=== PATIENT | male | born 1950 | race African-American/Black ===

== ENCOUNTER 2019-01-12 09:18 | Emergency (ER) | payer MEDICARE, MEDICAID ==
[~2019-01-12] VITALS: Ht 185.4 cm; Wt 102.3 kg
[~2019-01-12 09:18] MED LIST: AMLO10TA4 PO; ASPI-845 PO; ATEN50TA23 PO; DIPH25CA83 PO; GLIM4TAB4 PO; HYDR-4353 PO; LISI40TA4 PO; METF500T PO; MULT1TAB74 PO; OMEP20CA11 PO
--- NOTE | 2019-01-12 09:39 | NUR ---
PT OFF TO CT
[2019-01-12 10:08] LABS: BASOPHILS % (AUTO) 0.8 % (0-1); EOSINOPHILS # (AUTO) 0.1 X10'3 (0-0.9); EOSINOPHILS % (AUTO) 2.3 % (0-6); HEMATOCRIT 32.2 % (42.0-52.0); HEMOGLOBIN 10.9 g/dl (14.0-17.9); LYMPHOCYTES # (AUTO) 1.5 X10'3 (1.1-4.8); LYMPHOCYTES % (AUTO) 29.6 % (21-51); MEAN CORPUSCULAR HEMOGLOBIN 29.1 PG (27.0-31.0); MEAN CORPUSCULAR HGB CONC 33.9 g/dL (33.0-36.5); MEAN CORPUSCULAR VOLUME 85.9 FL (78-98); MEAN PLATELET VOLUME 8.4 FL (7.4-10.4); MONOCYTES # (AUTO) 0.7 X10'3 (0-0.9); MONOCYTES % (AUTO) 12.8 % (2-12); NEUTROPHILS # (AUTO) 2.8 X10'3 (1.8-7.7); NEUTROPHILS % (AUTO) 54.5 % (42-75); PLATELET COUNT 198 X10'3 (140-440); RED BLOOD COUNT 3.74 X10'6 (4.70-6.10); RED CELL DISTRIBUTION WIDTH 17.1 % (11.5-14.5); WHITE BLOOD COUNT 5.2 X10'3 (4.5-11.0)
--- NOTE | 2019-01-12 10:11 | NUR ---
STROKE CHECK LIST DONE EVERY 15 MIN IN VS FLOWSHEET
[2019-01-12 10:23] LABS: PARTIAL THROMBOPLASTIN TIME 25 SECONDS (22-32)
[2019-01-12 10:28] LABS: ALANINE AMINOTRANSFERASE 30 U/L (12-78); ALBUMIN 3.4 G/DL (3.4-5.0); ALBUMIN/GLOBULIN RATIO 0.9 (1.1-1.5); ALKALINE PHOSPHATASE 108 IU/L (46-116); ANION GAP 10 (8-16); ASPARTATE AMINO TRANSFERASE 18 U/L (10-37); BILIRUBIN,TOTAL 0.2 MG/DL (0.1-1.0); BLOOD UREA NITROGEN 14 MG/DL (7-18); CALCIUM 9.1 MG/DL (8.5-10.1); CHLORIDE 107 MMOL/L (99-107); CREATININE 1.08 MG/DL (0.60-1.10); GLUCOSE 140 MG/DL (70-104); POTASSIUM 4.1 MMOL/L (3.5-5.1); SODIUM 142 MMOL/L (135-145); TOTAL CARBON DIOXIDE 25.2 MMOL/L (24-32); TOTAL PROTEIN 7.2 G/DL (6.4-8.2); TROPONIN I < 0.04 NG/ML (0.0-0.05); eGFR 83 ML/MIN
[2019-01-12] MEDS ORDERED: HYDROcodone/acetaminophen 5mg/325mg tablet PO ONE (11:55)
[2019-01-12 12:09] VITALS: BP 163/89
== END 2019-01-12 12:13 | disposition home or self-care (01) ==
LOC: ER 09:20
DX: R51 Headache (principal); R42 Dizziness and giddiness; R41.0 Disorientation, unspecified; E78.00 Pure hypercholesterolemia, unspecified; I10 Essential (primary) hypertension; E11.9 Type 2 diabetes mellitus without complications; G89.29 Other chronic pain; F41.9 Anxiety disorder, unspecified; Z98.890 Other specified postprocedural states; F12.90 Cannabis use, unspecified, uncomplicated; F15.90 Other stimulant use, unspecified, uncomplicated; F10.99 Alcohol use, unspecified with unspecified alcohol-induced disorder; R79.1 Abnormal coagulation profile; Z60.2 Problems related to living alone; Z59.0 Homelessness; Z88.6 Allergy status to analgesic agent; Z88.0 Allergy status to penicillin; Z88.5 Allergy status to narcotic agent; Z88.8 Allergy status to other drugs, medicaments and biological substances; Z91.018 Allergy to other foods; Z79.82 Long term (current) use of aspirin; Z79.84 Long term (current) use of oral hypoglycemic drugs; Z79.899 Other long term (current) drug therapy; Y90.9 Presence of alcohol in blood, level not specified
CPT/HCPCS: 36415; 70450; 71045; 80053; 84484; 85025; 85610; 85651; 85730; 93005; 99284

== ENCOUNTER 2019-02-17 10:16 | Emergency (ER) | payer MEDICARE, MEDICAID ==
[~2019-02-17] VITALS: Ht 185.4 cm; Wt 95.0 kg
[2019-02-17 10:25] VITALS: BP 155/98
[2019-02-17] MEDS ORDERED: ketorolac trometh inj. 60 MG/2 ML VIAL IM ONE (12:40)
[2019-02-17] MEDS ORDERED: CYCL-1 PO (12:43)
== END 2019-02-17 13:06 | disposition home or self-care (01) ==
LOC: ER 10:16
DX: M54.5 Low back pain (principal); E78.00 Pure hypercholesterolemia, unspecified; I10 Essential (primary) hypertension; E11.9 Type 2 diabetes mellitus without complications; G89.29 Other chronic pain; F41.9 Anxiety disorder, unspecified; F12.90 Cannabis use, unspecified, uncomplicated; F15.90 Other stimulant use, unspecified, uncomplicated; Z88.0 Allergy status to penicillin; Z88.6 Allergy status to analgesic agent; Z88.8 Allergy status to other drugs, medicaments and biological substances; Z79.899 Other long term (current) drug therapy; Z79.82 Long term (current) use of aspirin; Z98.890 Other specified postprocedural states; Z60.2 Problems related to living alone; Z59.0 Homelessness; X50.0XXA Overexertion from strenuous movement or load, initial encounter; Y93.89 Activity, other specified; Y92.89 Other specified places as the place of occurrence of the external cause; Y99.8 Other external cause status
CPT/HCPCS: 96372; 99283; J1885

== ENCOUNTER 2019-02-26 00:10 | Emergency (ER) | payer MEDICARE, MEDICAID ==
[~2019-02-26] VITALS: Ht 185.4 cm; Wt 100.0 kg
[~2019-02-26 00:10] MED LIST changes: +CYCL-1 PO
[2019-02-26 00:55] LABS: BASOPHILS % (AUTO) 0.5 % (0-1); EOSINOPHILS # (AUTO) 0.1 X10'3 (0-0.9); HEMATOCRIT 22.2 % (42.0-52.0); HEMOGLOBIN 7.3 g/dl (14.0-17.9); LYMPHOCYTES # (AUTO) 1.6 X10'3 (1.1-4.8); LYMPHOCYTES % (AUTO) 24.4 % (21-51); MEAN CORPUSCULAR HEMOGLOBIN 25.7 PG (27.0-31.0); MEAN CORPUSCULAR HGB CONC 32.7 g/dL (33.0-36.5); MEAN CORPUSCULAR VOLUME 78.5 FL (78-98); MEAN PLATELET VOLUME 7.6 FL (7.4-10.4); MONOCYTES # (AUTO) 0.6 X10'3 (0-0.9); MONOCYTES % (AUTO) 9.3 % (2-12); NEUTROPHILS # (AUTO) 4.1 X10'3 (1.8-7.7); NEUTROPHILS % (AUTO) 63.8 % (42-75); PLATELET COUNT 278 X10'3 (140-440); RED BLOOD COUNT 2.83 X10'6 (4.70-6.10); RED CELL DISTRIBUTION WIDTH 18.6 % (11.5-14.5); WHITE BLOOD COUNT 6.5 X10'3 (4.5-11.0)
[2019-02-26 01:05] LABS: ALANINE AMINOTRANSFERASE 17 U/L (12-78); ALBUMIN 3.1 G/DL (3.4-5.0); ALBUMIN/GLOBULIN RATIO 0.9 (1.1-1.5); ALKALINE PHOSPHATASE 97 IU/L (46-116); ANION GAP 10 (8-16); ASPARTATE AMINO TRANSFERASE 16 U/L (10-37); BILIRUBIN,TOTAL 0.2 MG/DL (0.1-1.0); BLOOD UREA NITROGEN 15 MG/DL (7-18); BUN/CREATININE RATIO 11.9 (5.4-32.0); CALCIUM 8.7 MG/DL (8.5-10.1); CHLORIDE 107 MMOL/L (99-107); CREATININE 1.26 MG/DL (0.60-1.10); GLUCOSE 143 MG/DL (70-104); SODIUM 140 MMOL/L (135-145); TOTAL CARBON DIOXIDE 22.9 MMOL/L (24-32); TOTAL PROTEIN 6.6 G/DL (6.4-8.2); eGFR 69 ML/MIN
[2019-02-26 01:10] LABS: MAGNESIUM 1.6 MG/DL (1.5-2.4)
[2019-02-26 01:21] LABS: ANISOCYTOSIS 2+; HYPOCHROMASIA 1+; MICROCYTOSIS 1+; PLATELET ESTIMATE NORMAL
[2019-02-26] MEDS ORDERED: PIOG15TA8 PO (02:05)
[2019-02-26] MEDS ORDERED: LINA5TAB4 PO (02:05)
[2019-02-26] MEDS ORDERED: METO1TAB25 PO (02:05)
[2019-02-26] MEDS ORDERED: DULO-31 PO (02:05)
[2019-02-26] MEDS ORDERED: CLOP75TA35 PO (02:05)
[2019-02-26] MEDS ORDERED: SIMV10TA2 PO (02:05)
[2019-02-26] MEDS ORDERED: PARO10TA85 PO (02:05)
[2019-02-26 02:10] VITALS: BP 138/75
[2019-02-26 04:13] LABS: OCCULT BLOOD STOOL NEGATIVE (Neg)
== END 2019-02-26 02:13 | disposition home or self-care (01) ==
LOC: ER 00:11
DX: T78.40XA Allergy, unspecified, initial encounter (principal); D64.9 Anemia, unspecified; E78.00 Pure hypercholesterolemia, unspecified; I10 Essential (primary) hypertension; E11.9 Type 2 diabetes mellitus without complications; G89.29 Other chronic pain; F41.9 Anxiety disorder, unspecified; F12.90 Cannabis use, unspecified, uncomplicated; F15.90 Other stimulant use, unspecified, uncomplicated; Z98.890 Other specified postprocedural states; Z60.2 Problems related to living alone; Z59.0 Homelessness; Z87.891 Personal history of nicotine dependence; Z88.6 Allergy status to analgesic agent; Z88.0 Allergy status to penicillin; Z88.5 Allergy status to narcotic agent; Z88.8 Allergy status to other drugs, medicaments and biological substances; Z79.82 Long term (current) use of aspirin; Z79.84 Long term (current) use of oral hypoglycemic drugs; Z79.899 Other long term (current) drug therapy; X58.XXXA Exposure to other specified factors, initial encounter; Y93.89 Activity, other specified; Y92.89 Other specified places as the place of occurrence of the external cause; Y99.8 Other external cause status
CPT/HCPCS: 36415; 71045; 80053; 82272; 83735; 83880; 84484; 85025; 93005; 99284

== ENCOUNTER 2019-02-28 01:00 | Inpatient (IN) | payer MEDICARE, MEDICAID ==
--- NOTE | 2019-02-26 18:20 | NUR ---
received report from TERESITA Ruth Addendum: 03/09/19 at 0111 by Henrietta Jones RN wrong documentation, received report on 03/08 not 02/26
[2019-02-28] VITALS (19 sets, daily range): BP systolic 96–178; BP diastolic 55–89
[~2019-02-28] VITALS: Ht 182.9 cm; Wt 97.1 kg
[~2019-02-28 01:00] MED LIST changes: -ATEN50TA23 PO; +CLOP75TA35 PO; -CYCL-1 PO; -DIPH25CA83 PO; +DULO-31 PO; -HYDR-4353 PO; +LINA5TAB4 PO; +METO1TAB25 PO; -MULT1TAB74 PO; +OMEP-297 PO; -OMEP20CA11 PO; +PARO10TA85 PO; +PIOG15TA8 PO; +SIMV10TA2 PO
[2019-02-28] MEDS ORDERED: normal saline 1000ML IV soln IVB STA (01:03)
[2019-02-28] MEDS ORDERED: famotidine/PF 10 mg/ml inj IV ONE (01:05)
[2019-02-28] MEDS ORDERED: methylPREDNISolone sod succ 125mg/2ml vial IV ONE (01:05)
[2019-02-28] MEDS ORDERED: epiNEPHrine 1 mg/ml inj IM ONE (01:05)
[2019-02-28] MEDS ORDERED: diphenhydrAMINE 50 mg/ml inj IV ONE (01:05)
[2019-02-28] MEDS ORDERED: tranexamic acid 100mg/ml inj. IV ONE (01:05)
[2019-02-28] MEDS ORDERED: epiNEPHrine 1 mg/ml inj ONE (01:09)
[2019-02-28] MEDS ORDERED: LORazepam 2 mg/ml vial IV ONE (01:10)
--- NOTE | 2019-02-28 01:16 | NUR ---
by dr. kincaid. Verbal received for another epinephrin 0.3 mg. pt has been given benedryl, ativan also.
--- NOTE | 2019-02-28 01:20 | NUR ---
dr kincaid back at bedside, pt given pepcid, txa and solumedrol.
--- NOTE | 2019-02-28 01:25 | NUR ---
Pt given 0.3 mg Epi IM. Verbal order from Dr. Crowder to repeat Q5 min until symptoms resolve.
--- NOTE | 2019-02-28 01:30 | NUR ---
Pt with no improvement in symptoms. 0.3 mg Epi given IM as ordered.
--- NOTE | 2019-02-28 01:35 | NUR ---
Dr. Crowder made aware Pt no c/o SOB and difficutly breathing. 0.3 mg Epi given IM as ordered.
--- NOTE | 2019-02-28 01:40 | NUR ---
Plan is to intubate Pt. RT paged and meds pulled from crash cart for RSI.
--- NOTE | 2019-02-28 01:47 | NUR ---
RSI - 20 MG ETOMIDATE AND 100 MG ROCURONIUM GIVEN PER VERBAL ORDER FROM DR. FISHER.
--- NOTE | 2019-02-28 01:49 | NUR ---
Pt intubated 8.0 tube secured 23 at the lips.
--- NOTE | 2019-02-28 01:53 | NUR ---
12 mg Adenosine given IVP per verbal order from Dr. Crowder.
[2019-02-28] MEDS ORDERED: diltiazem 5mg/ml 5ml inj. IV ONE (01:55)
[2019-02-28] MEDS ORDERED: diltiazem-D5W 125mg/125ml 125 ML IV ONE (01:57)
[2019-02-28] MEDS ORDERED: fentaNYL/PF 50MCG/1 ML 2ML syringe IV PRN (02:00)
[2019-02-28] MEDS ORDERED: aspirin 81mg tab.chew PO ONE (02:00)
--- NOTE | 2019-02-28 02:00 | NUR ---
Another 12 mg Adenosine given per Dr. Crowder verbal order.
[2019-02-28] MEDS ORDERED: diltiazem-NS 100mg/100ml 100 ML IV SCH (02:05)
[2019-02-28 02:20] LABS: ABG PCO2 (T) 41.8 mmHg (35.0-45.0); ABG PH (T) 7.222 (7.350-7.450); ABG PO2 (T) 38.6 mmHg (83-108); ALLEN'S TEST Positive; MINUTE VOLUME 10 L/min; PEEP 5 cm H2O; RESPIRATORY RATE 20 b/min; RESPIRATORY RATE (OBSERVED) 20 b/min; TIDAL VOLUME 500 mL
[2019-02-28 02:21] LABS: ABG BASE EXCESS -10.3 mmol/L (-2.0-3.0); ABG HCO3 16.8 mmol/L (22.0-26.0); ABG OXYGEN SATURATION 59.1 % (95-98); FCOHb 2.5 % (0.5-1.5); FMetHb 0.3 % (0.3-1.12); FO2Hb 57.4 % (94-100); TOTAL HEMOGLOBIN 10.1 G/dl (14.0-17.9)
[2019-02-28] MEDS ORDERED: ipratropium/albuterol 3ml nebule NEB PRN (02:25)
[2019-02-28] MEDS ORDERED: potassium Cl 20 mEq SR tablet PO PRN (02:25)
[2019-02-28] MEDS ORDERED: acetaminophen 325mg tablet PO PRN ×2 (02:25)
[2019-02-28] MEDS ORDERED: normal saline 1000ml 1,000 ML IV SCH (02:25)
[2019-02-28] MEDS ORDERED: potassium Cl 20mEq/100mL bag 100 ML IV PRN (02:25)
[2019-02-28] MEDS ORDERED: furosemide 10 MG/1 ML 10ml inj IV ONE ×3 (02:25→07:40)
[2019-02-28] MEDS: K, MAG and/or Phos replacement - Verify level? MC SCH ×2 (02:25→08:00)
[2019-02-28] MEDS: midazolam 100mg in NS 100ml 100 ML IV SCH ×2 (02:26→16:44)
[2019-02-28] MEDS ORDERED: propofol 1000mg/100ml bottle 100 ML IV SCH (02:39)
[2019-02-28 02:57] LABS: BASOPHILS # (AUTO) 0.1 X10'3 (0-0.2); BASOPHILS % (AUTO) 0.6 % (0-1); EOSINOPHILS # (AUTO) 0.3 X10'3 (0-0.9); EOSINOPHILS % (AUTO) 1.5 % (0-6); HEMATOCRIT 31.8 % (42.0-52.0); HEMOGLOBIN 9.8 g/dl (14.0-17.9); LYMPHOCYTES # (AUTO) 7.6 X10'3 (1.1-4.8); LYMPHOCYTES % (AUTO) 43.9 % (21-51); MEAN CORPUSCULAR HEMOGLOBIN 25.1 PG (27.0-31.0); MEAN CORPUSCULAR HGB CONC 30.9 g/dL (33.0-36.5); MEAN CORPUSCULAR VOLUME 81.3 FL (78-98); MEAN PLATELET VOLUME 8.4 FL (7.4-10.4); MONOCYTES # (AUTO) 1.5 X10'3 (0-0.9); MONOCYTES % (AUTO) 8.8 % (2-12); NEUTROPHILS # (AUTO) 7.8 X10'3 (1.8-7.7); NEUTROPHILS % (AUTO) 45.2 % (42-75); PLATELET COUNT 441 X10'3 (140-440); RED BLOOD COUNT 3.91 X10'6 (4.70-6.10); RED CELL DISTRIBUTION WIDTH 19.7 % (11.5-14.5); WHITE BLOOD COUNT 17.4 X10'3 (4.5-11.0)
--- NOTE | 2019-02-28 02:57 | NUR ---
JULISSA MAYES VEBALIZED TO INCREASE NITRO AND CARDIZEM UP TO 10 MCG
--- NOTE | 2019-02-28 03:15 | NUR ---
NET MAKING SUPERVISOR Shon at bedside, verbal order to increase Nitro by 10 mcg.
[2019-02-28 03:16] LABS: ALANINE AMINOTRANSFERASE 16 U/L (12-78); ALBUMIN 3.1 G/DL (3.4-5.0); ALBUMIN/GLOBULIN RATIO 0.7 (1.1-1.5); ALKALINE PHOSPHATASE 132 IU/L (46-116); ANION GAP 15 (8-16); ASPARTATE AMINO TRANSFERASE 20 U/L (10-37); BILIRUBIN,TOTAL 0.2 MG/DL (0.1-1.0); BLOOD UREA NITROGEN 12 MG/DL (7-18); BUN/CREATININE RATIO 9.5 (5.4-32.0); CALCIUM 8.1 MG/DL (8.5-10.1); CHLORIDE 106 MMOL/L (99-107); CREATININE 1.26 MG/DL (0.60-1.10); GLUCOSE 284 MG/DL (70-104); POTASSIUM 3.2 MMOL/L (3.5-5.1); SODIUM 140 MMOL/L (135-145); TOTAL CARBON DIOXIDE 19.4 MMOL/L (24-32); TOTAL PROTEIN 7.3 G/DL (6.4-8.2); eGFR 69 ML/MIN
[2019-02-28 03:21] LABS: ABG BASE EXCESS -9.8 mmol/L (-2.0-3.0); ABG HCO3 17.6 mmol/L (22.0-26.0); ABG OXYGEN SATURATION 75.1 % (95-98); ABG PCO2 (T) 43.8 mmHg (35.0-45.0); ABG PO2 (T) 47.2 mmHg (83-108); ALLEN'S TEST Positive; FCOHb 1.9 % (0.5-1.5); FMetHb 0.1 % (0.3-1.12); FO2Hb 73.6 % (94-100); MINUTE VOLUME 15 L/min; PATIENT TEMPERATURE 36.5; PEEP 15 cm H2O; RESPIRATORY RATE 20 b/min; RESPIRATORY RATE (OBSERVED) 20 b/min; TOTAL HEMOGLOBIN 10.8 G/dl (14.0-17.9)
[2019-02-28 03:21] LABS: MAGNESIUM 1.9 MG/DL (1.5-2.4)
--- NOTE | 2019-02-28 03:27 | NUR ---
DR FISHER AT BEDSIDE FOR PLACEMENT OF CENTRAL LINE. SUGEY NETWORK COORDINATOR ALSO AT [facility]. ANA AUSTIN GTT 30 MCG/MIN. DILTIAZEM AND VERSED INFUSING.
--- NOTE | 2019-02-28 04:50 | NUR ---
Patient in room CICU 2014 from ER. I have received report from Sreekanth LO and had the opportunity to ask questions and assume patient care.
--- NOTE | 2019-02-28 06:30 | NUR ---
Problems reprioritized. Patient report given, questions answered & plan of care reviewed with Stephanie LO.
[2019-02-28] MEDS: methylPREDNISolone sod succ/PF 40mg inj. IV SCH ×3 (07:25→20:34)
[2019-02-28] MEDS: heparin, porcine 5000 units/ml vial SQ SCH ×2 (07:26→20:00)
[2019-02-28] MEDS: famotidine/PF 10 mg/ml inj IV SCH ×2 (07:26→20:34)
[2019-02-28] MEDS ORDERED: adenosine 3mg/ml 2ml vial IV ONE (08:00)
[2019-02-28] MEDS ORDERED: rocuronium 10mg/ml inj IV ONE (08:00)
[2019-02-28] MEDS ORDERED: etomidate 2mg/ml inj. ONE (08:00)
[2019-02-28] MEDS ORDERED: sod chloride 0.9% 10ml flush syringe IV ONE (08:00)
[2019-02-28] MEDS: potassium Cl 20mEq/100mL bag 100 ML IV PRN ×2 (08:53→11:35)
[2019-02-28] MEDS: FENTANYL-0.9 % NACL/PF 100 ML IV PRN ×2 (09:02→17:24)
[2019-02-28] MEDS: carVEDilol 3.125mg tablet PO SCH ×2 (09:05→20:33)
[2019-02-28 09:10] LABS: ABG BASE EXCESS -8.7 mmol/L (-2.0-3.0); ABG HCO3 16.9 mmol/L (22.0-26.0); ABG OXYGEN SATURATION 77.6 % (95-98); ABG PCO2 (T) 35.3 mmHg (35.0-45.0); ABG PH (T) 7.298 (7.350-7.450); ABG PO2 (T) 49.2 mmHg (83-108); ALLEN'S TEST Positive; FCOHb 0.3 % (0.5-1.5); FMetHb 0.1 % (0.3-1.12); FO2Hb 77.3 % (94-100); MINUTE VOLUME 27 L/min; PEEP 15 cm H2O; RESPIRATORY RATE 20 b/min; RESPIRATORY RATE (OBSERVED) 25 b/min; TIDAL VOLUME 400 mL; TOTAL HEMOGLOBIN 9.7 G/dl (14.0-17.9)
[2019-02-28] MEDS ORDERED: dextrose ORAL solution 15 GM/59 ML bottle PO PRN ×2 (09:40)
[2019-02-28] MEDS ORDERED: glucagon, human recombinant 1mg kit SUBCUT PRN (09:40)
[2019-02-28] MEDS ORDERED: insulin regular, human vial - multi-dose SQ SCH (09:40)
[2019-02-28] MEDS ORDERED: dextrose 50%-water 50ml dispensing syringe IV PRN ×2 (09:40)
[2019-02-28] MEDS: heparin 25,000 UNIT/250ml bag 250 ML IV SCH (09:58)
[2019-02-28] MEDS ORDERED: heparin 10,000 units/1 ML INJ IV PRN (10:00)
[2019-02-28] MEDS ORDERED: heparin 10,000 units/1 ML INJ IV ONE ×2 (10:00→10:10)
[2019-02-28 11:29] LABS: BASOPHILS % (AUTO) 0.3 % (0-1); EOSINOPHILS % (AUTO) 0.3 % (0-6); HEMATOCRIT 26.4 % (42.0-52.0); HEMOGLOBIN 8.7 g/dl (14.0-17.9); LYMPHOCYTES # (AUTO) 0.3 X10'3 (1.1-4.8); MEAN CORPUSCULAR HEMOGLOBIN 25.6 PG (27.0-31.0); MEAN CORPUSCULAR HGB CONC 32.9 g/dL (33.0-36.5); MEAN CORPUSCULAR VOLUME 77.8 FL (78-98); MONOCYTES # (AUTO) 0.5 X10'3 (0-0.9); MONOCYTES % (AUTO) 4.5 % (2-12); NEUTROPHILS # (AUTO) 9.2 X10'3 (1.8-7.7); NEUTROPHILS % (AUTO) 91.9 % (42-75); PLATELET COUNT 335 X10'3 (140-440); RED BLOOD COUNT 3.39 X10'6 (4.70-6.10); RED CELL DISTRIBUTION WIDTH 19.2 % (11.5-14.5)
[2019-02-28 11:35] LABS: OXYGEN SATURATION (MIXED VEN) 51.9 % (60-80); PO2 MIXED VENOUS (TEMP COR) 31.1 mmHg (35-46)
[2019-02-28] MEDS ORDERED: METO50TA17 PO (11:36)
[2019-02-28 13:03] LABS: NUCLEATED RED BLOOD CELLS 3 /100WBC (0-0); TOTAL CELLS COUNTED 100
[2019-02-28 13:05] LABS: ANISOCYTOSIS 2+; ELLIPTOCYTES FEW; HYPOCHROMASIA 1+; MICROCYTOSIS 1+; PLATELET ESTIMATE NORMAL; POLYCHROMASIA 1+
[2019-02-28 13:06] LABS: ACANTHOCYTES FEW; BURR CELLS FEW; SCHISTOCYTES FEW
[2019-02-28] MEDS: ipratropium/albuterol 3ml nebule NEB SCH ×3 (15:24→23:34)
[2019-02-28 16:43] LABS: HEMOGLOBIN A1C 7.3 % (4.5-6.2)
[2019-02-28 17:30] LABS: ABG BASE EXCESS -3.7 mmol/L (-2.0-3.0); ABG HCO3 20.4 mmol/L (22.0-26.0); ABG OXYGEN SATURATION 99.4 % (95-98); ABG PCO2 (T) 33.1 mmHg (35.0-45.0); ABG PH (T) 7.408 (7.350-7.450); ABG PO2 (T) 202.3 mmHg (83-108); ALLEN'S TEST Positive; FCOHb 0.3 % (0.5-1.5); FMetHb 0.1 % (0.3-1.12); MINUTE VOLUME 13 L/min; PEEP 12 cm H2O; RESPIRATORY RATE 16 b/min; RESPIRATORY RATE (OBSERVED) 16 b/min; TOTAL HEMOGLOBIN 8.6 G/dl (14.0-17.9)
[2019-02-28 17:35] LABS: PARTIAL THROMBOPLASTIN TIME 66 SECONDS (22-32)
--- NOTE | 2019-02-28 17:37 | NUR ---
Per patient's family, patient has had "an allergic reaction" to steroids in the past. Family cannot recall what steroids but stated that "sometimes they give him a rash"
--- NOTE | 2019-02-28 19:40 | NUR ---
Patient is intubated, presents with respiratory failure, angioedema, acute pulmonary edema, receiving lasix. NPO at this time. Recommend: 1. Patient would benefit from nutrition support if prolonged intubation, IF TF recommend Vital AF at 70 ml/hr 2. IF TF, additional water per MD in view of pulmonary edema 3. weight per rx Addendum: 02/28/19 at 1940 [address] Beatriz Muñoz RD Amended: Links added.
[2019-02-28] MEDS: insulin Lispro (HumaLOG) vial - multi-dose SQ SCH (20:04)
[2019-02-28] MEDS: insulin glargine (Lantus) pen - multi-dose SQ SCH (20:05)
[2019-02-28] MEDS: atorvastatin 20mg tablet PO SCH (20:33)
[2019-03-01] VITALS (35 sets, daily range): BP systolic 104–128; BP diastolic 62–78
[2019-03-01] MEDS: midazolam 100mg in NS 100ml 100 ML IV SCH ×3 (01:21→21:14)
[2019-03-01] MEDS: FENTANYL-0.9 % NACL/PF 100 ML IV PRN (02:04)
[2019-03-01] MEDS: methylPREDNISolone sod succ/PF 40mg inj. IV SCH ×2 (02:14→07:35)
[2019-03-01] MEDS: insulin Lispro (HumaLOG) vial - multi-dose SQ SCH ×4 (02:14→20:07)
[2019-03-01] MEDS: ipratropium/albuterol 3ml nebule NEB SCH ×6 (03:01→23:16)
[2019-03-01 03:20] LABS: ABG BASE EXCESS -1.7 mmol/L (-2.0-3.0); ABG HCO3 20.9 mmol/L (22.0-26.0); ABG OXYGEN SATURATION 97.4 % (95-98); ABG PCO2 (T) 26.9 mmHg (35.0-45.0); ABG PH (T) 7.506 (7.350-7.450); ALLEN'S TEST Positive; FCOHb 0.3 % (0.5-1.5); FO2Hb 97.1 % (94-100); MINUTE VOLUME 14 L/min; PATIENT TEMPERATURE 36.7; PEEP 8 cm H2O; RESPIRATORY RATE 16 b/min; RESPIRATORY RATE (OBSERVED) 16 b/min; TOTAL HEMOGLOBIN 8.8 G/dl (14.0-17.9)
[2019-03-01 05:07] LABS: BASOPHILS % (AUTO) 0.1 % (0-1); EOSINOPHILS % (AUTO) 0 % (0-6); LYMPHOCYTES # (AUTO) 0.6 X10'3 (1.1-4.8); LYMPHOCYTES % (AUTO) 5.8 % (21-51); MEAN CORPUSCULAR HEMOGLOBIN 25.2 PG (27.0-31.0); MEAN CORPUSCULAR VOLUME 78.7 FL (78-98); MEAN PLATELET VOLUME 8.2 FL (7.4-10.4); MONOCYTES # (AUTO) 0.5 X10'3 (0-0.9); MONOCYTES % (AUTO) 4.9 % (2-12); NEUTROPHILS # (AUTO) 9.4 X10'3 (1.8-7.7); NEUTROPHILS % (AUTO) 89.2 % (42-75); PLATELET COUNT 285 X10'3 (140-440); RED BLOOD COUNT 2.76 X10'6 (4.70-6.10); RED CELL DISTRIBUTION WIDTH 19.2 % (11.5-14.5); WHITE BLOOD COUNT 10.5 X10'3 (4.5-11.0)
[2019-03-01 05:17] LABS: ALANINE AMINOTRANSFERASE 18 U/L (12-78); ALBUMIN 2.6 G/DL (3.4-5.0); ALBUMIN/GLOBULIN RATIO 0.7 (1.1-1.5); ALKALINE PHOSPHATASE 89 IU/L (46-116); ANION GAP 12 (8-16); ASPARTATE AMINO TRANSFERASE 21 U/L (10-37); BILIRUBIN,TOTAL 0.2 MG/DL (0.1-1.0); BLOOD UREA NITROGEN 21 MG/DL (7-18); BUN/CREATININE RATIO 20.8 (5.4-32.0); CALCIUM 7.9 MG/DL (8.5-10.1); CHLORIDE 108 MMOL/L (99-107); CREATININE 1.01 MG/DL (0.60-1.10); GLUCOSE 166 MG/DL (70-104); MAGNESIUM 1.6 MG/DL (1.5-2.4); PHOSPHORUS 2.9 MG/DL (2.3-4.5); POTASSIUM 3.9 MMOL/L (3.5-5.1); SODIUM 141 MMOL/L (135-145); TOTAL CARBON DIOXIDE 21.3 MMOL/L (24-32); TOTAL PROTEIN 6.1 G/DL (6.4-8.2); TRIGLYCERIDES 62 MG/DL (20-135); eGFR 89 ML/MIN
[2019-03-01 05:24] LABS: HEMOGLOBIN 6.9 g/dl (14.0-17.9)
[2019-03-01 05:25] LABS: HEMATOCRIT 21.7 % (42.0-52.0)
[2019-03-01 06:22] LABS: MEAN CORPUSCULAR HEMOGLOBIN 24.5 PG (27.0-31.0); MEAN CORPUSCULAR HGB CONC 31.5 g/dL (33.0-36.5); MEAN CORPUSCULAR VOLUME 77.6 FL (78-98); MEAN PLATELET VOLUME 8.2 FL (7.4-10.4); PLATELET COUNT 285 X10'3 (140-440); RED BLOOD COUNT 2.81 X10'6 (4.70-6.10); WHITE BLOOD COUNT 11.1 X10'3 (4.5-11.0)
[2019-03-01 06:25] LABS: HEMATOCRIT 21.8 % (42.0-52.0); HEMOGLOBIN 6.9 g/dl (14.0-17.9)
[2019-03-01 07:18] LABS: ANISOCYTOSIS 2+; MICROCYTOSIS 1+; PLATELET ESTIMATE NORMAL; POLYCHROMASIA 1+; TARGET CELLS FEW
[2019-03-01 07:19] LABS: HYPOCHROMASIA 1+; POIKILOCYTOSIS FEW
[2019-03-01] MEDS: heparin 25,000 UNIT/250ml bag 250 ML IV SCH (07:28)
[2019-03-01] MEDS: famotidine/PF 10 mg/ml inj IV SCH ×2 (07:35→20:10)
[2019-03-01] MEDS: mineral oil/petrolatum ophthal oint EACHEYE SCH ×3 (07:35→20:10)
[2019-03-01] MEDS: carVEDilol 3.125mg tablet PO SCH ×2 (07:35→20:10)
[2019-03-01] MEDS: aspirin 325mg tablet PO SCH (07:35)
[2019-03-01] MEDS: heparin, porcine 5000 units/ml vial SQ SCH (08:00)
[2019-03-01] MEDS: K, MAG and/or Phos replacement - Verify level? MC SCH (08:00)
--- NOTE | 2019-03-01 11:26 | NUR ---
DM Consult: A1C 7.3; pt will need DM ed once stable prior to d/c. Addendum: 03/01/19 at [address] Amended: Links added.
[2019-03-01] MEDS: cefepime 1GM in D5W 50mL 50 ML IV SCH ×3 (12:28→23:13)
[2019-03-01] MEDS: dexamethasone 4mg/ml inj IV SCH ×2 (14:14→20:10)
--- NOTE | 2019-03-01 18:44 | NUR ---
Problems reprioritized. Patient report given, questions answered & plan of care reviewed with operations supervisor 2nd shift rn.
--- NOTE | 2019-03-01 19:32 | NUR ---
1844: Patient in room CICU 2013. I have received report from Lesvia LO and had the opportunity to ask questions and assume patient care. 1932: Pt's family at beside, questions answered. Will continue to monitor.
[2019-03-01] MEDS: insulin glargine (Lantus) pen - multi-dose SQ SCH (20:09)
[2019-03-01] MEDS: lactobacillus rhamnosus 10,000 MMU CELLS/CAPSULE PO SCH (20:10)
[2019-03-01] MEDS: atorvastatin 20mg tablet PO SCH (21:14)
[2019-03-01 23:27] LABS: HEMOGLOBIN 8.3 g/dl (14.0-17.9); MEAN CORPUSCULAR HEMOGLOBIN 25.7 PG (27.0-31.0); MEAN CORPUSCULAR VOLUME 80.4 FL (78-98); PLATELET COUNT 267 X10'3 (140-440); RED BLOOD COUNT 3.24 X10'6 (4.70-6.10); RED CELL DISTRIBUTION WIDTH 18.4 % (11.5-14.5); WHITE BLOOD COUNT 11.6 X10'3 (4.5-11.0)
[2019-03-02] VITALS (24 sets, daily range): BP systolic 112–187; BP diastolic 58–120
[2019-03-02] MEDS: FENTANYL-0.9 % NACL/PF 100 ML IV PRN ×2 (00:27→08:02)
--- NOTE | 2019-03-02 02:13 | NUR ---
Pt awakens quickly, coughs up large amounts of thick, cream and brown colored sputum while attempting to cough out ETT. Titrating sedation and pain medication for patient comfort.
[2019-03-02] MEDS: dexamethasone 4mg/ml inj IV SCH ×4 (02:36→20:25)
[2019-03-02] MEDS: mineral oil/petrolatum ophthal oint EACHEYE SCH ×2 (02:36→07:38)
[2019-03-02] MEDS: insulin Lispro (HumaLOG) vial - multi-dose SQ SCH ×2 (02:40→15:12)
[2019-03-02] MEDS: ipratropium/albuterol 3ml nebule NEB SCH ×6 (02:44→23:58)
[2019-03-02 03:00] LABS: ABG BASE EXCESS -4.9 mmol/L (-2.0-3.0); ABG HCO3 19.4 mmol/L (22.0-26.0); ABG OXYGEN SATURATION 95.6 % (95-98); ABG PH (T) 7.397 (7.350-7.450); ABG PO2 (T) 81.5 mmHg (83-108); ALLEN'S TEST Positive; FCOHb 0.2 % (0.5-1.5); FMetHb 0.2 % (0.3-1.12); FO2Hb 95.2 % (94-100); MINUTE VOLUME 11 L/min; PATIENT TEMPERATURE 36.4; PEEP 5 cm H2O; RESPIRATORY RATE 12 b/min; RESPIRATORY RATE (OBSERVED) 15 b/min; TOTAL HEMOGLOBIN 9.2 G/dl (14.0-17.9)
[2019-03-02 05:25] LABS: BASOPHILS % (AUTO) 0.1 % (0-1); EOSINOPHILS % (AUTO) 0 % (0-6); HEMATOCRIT 25.8 % (42.0-52.0); HEMOGLOBIN 8.5 g/dl (14.0-17.9); LYMPHOCYTES # (AUTO) 0.4 X10'3 (1.1-4.8); LYMPHOCYTES % (AUTO) 3.5 % (21-51); MEAN CORPUSCULAR HEMOGLOBIN 26.4 PG (27.0-31.0); MEAN CORPUSCULAR VOLUME 79.9 FL (78-98); MEAN PLATELET VOLUME 7.9 FL (7.4-10.4); MONOCYTES # (AUTO) 0.5 X10'3 (0-0.9); MONOCYTES % (AUTO) 4.6 % (2-12); NEUTROPHILS # (AUTO) 10.1 X10'3 (1.8-7.7); NEUTROPHILS % (AUTO) 91.8 % (42-75); PLATELET COUNT 266 X10'3 (140-440); RED BLOOD COUNT 3.22 X10'6 (4.70-6.10); RED CELL DISTRIBUTION WIDTH 18.7 % (11.5-14.5)
[2019-03-02] MEDS: midazolam 100mg in NS 100ml 100 ML IV SCH (05:31)
[2019-03-02 05:44] LABS: ALANINE AMINOTRANSFERASE 19 U/L (12-78); ALBUMIN 2.6 G/DL (3.4-5.0); ALBUMIN/GLOBULIN RATIO 0.7 (1.1-1.5); ALKALINE PHOSPHATASE 82 IU/L (46-116); ANION GAP 8 (8-16); ASPARTATE AMINO TRANSFERASE 16 U/L (10-37); BILIRUBIN,TOTAL 0.2 MG/DL (0.1-1.0); BLOOD UREA NITROGEN 23 MG/DL (7-18); BUN/CREATININE RATIO 24.7 (5.4-32.0); CHLORIDE 109 MMOL/L (99-107); CREATININE 0.93 MG/DL (0.60-1.10); GLUCOSE 140 MG/DL (70-104); PHOSPHORUS 3.4 MG/DL (2.3-4.5); POTASSIUM 3.9 MMOL/L (3.5-5.1); SODIUM 141 MMOL/L (135-145); TOTAL PROTEIN 6.1 G/DL (6.4-8.2); eGFR > 90 ML/MIN
--- NOTE | 2019-03-02 06:19 | NUR ---
Problems reprioritized. Patient report given, questions answered & plan of care reviewed with Lesvia LO.
[2019-03-02 07:23] LABS: ANISOCYTOSIS 2+; PLATELET ESTIMATE NORMAL
[2019-03-02 07:24] LABS: MICROCYTOSIS 1+
[2019-03-02 07:25] LABS: ELLIPTOCYTES FEW
[2019-03-02 07:26] LABS: POIKILOCYTOSIS 1+; POLYCHROMASIA FEW
[2019-03-02] MEDS: cefepime 1GM in D5W 50mL 50 ML IV SCH ×2 (07:34→16:23)
[2019-03-02] MEDS: heparin 25,000 UNIT/250ml bag 250 ML IV SCH (07:35)
[2019-03-02] MEDS: famotidine/PF 10 mg/ml inj IV SCH ×2 (07:37→20:25)
[2019-03-02] MEDS: carVEDilol 3.125mg tablet PO SCH ×2 (07:37→20:00)
[2019-03-02] MEDS: lactobacillus rhamnosus 10,000 MMU CELLS/CAPSULE PO SCH ×2 (07:37→20:00)
[2019-03-02] MEDS: duloxetine 30mg CAPSULE.DR PO SCH (07:37)
[2019-03-02] MEDS: K, MAG and/or Phos replacement - Verify level? MC SCH (08:00)
[2019-03-02] MEDS ORDERED: scopolamine 1.5mg patch.TD72 TD ONE (09:15)
[2019-03-02] MEDS ORDERED: FENTANYL-0.9 % NACL/PF 100 ML IV PRN (09:17)
[2019-03-02] MEDS ORDERED: heparin 25,000 UNIT/250ml bag 250 ML IV SCH ×2 (09:18→09:20)
[2019-03-02] MEDS ORDERED: midazolam 100mg in NS 100ml 100 ML IV SCH (09:18)
--- NOTE | 2019-03-02 12:29 | NUR ---
Patient in room CICU 2013. I have received report from night filler and had the opportunity to ask questions and assume patient care.
[2019-03-02 12:48] LABS: OCCULT BLOOD STOOL POSITIVE (Neg)
[2019-03-02 14:20] LABS: ABG BASE EXCESS -0.7 mmol/L (-2.0-3.0); ABG HCO3 23.5 mmol/L (22.0-26.0); ABG OXYGEN SATURATION 93.7 % (95-98); ABG PCO2 (T) 36.8 mmHg (35.0-45.0); ABG PH (T) 7.423 (7.350-7.450); ABG PO2 (T) 70.9 mmHg (83-108); ALLEN'S TEST Positive; FCOHb 0.3 % (0.5-1.5); FLOW 3 L/min; FMetHb 0.3 % (0.3-1.12); FO2Hb 93.1 % (94-100); TOTAL HEMOGLOBIN 10.1 G/dl (14.0-17.9)
[2019-03-02] MEDS: LIDOcaine 5% patch TP SCH (15:08)
[2019-03-02] MEDS: aspirin 325mg tablet PO SCH (15:13)
[2019-03-02] MEDS ORDERED: LORazepam 2 mg/ml vial IM ONE (15:55)
[2019-03-02] MEDS ORDERED: LORazepam 2 mg/ml vial ONE (15:58)
[2019-03-02] MEDS ORDERED: LORazepam 2 mg/ml vial IV PRN ×2 (16:50→20:55)
[2019-03-02] MEDS ORDERED: fentaNYL/PF 50MCG/1 ML 2ML syringe IV ONE (17:00)
--- NOTE | 2019-03-02 18:31 | NUR ---
Patient in room CICU 2013. I have received report from Martita LO and had the opportunity to ask questions and assume patient care.
[2019-03-02] MEDS ORDERED: cyclobenzaprine 10mg tablet PO PRN (19:05)
--- NOTE | 2019-03-02 19:30 | NUR ---
Once patient's significant other left bedside to go home for the night, patient has been demonstrating increased anxiety. He trying to get out of the bed and is difficult to redirect. He is unable to express why he is feeling anxious. The only thing that he does say is that he has to pee however siddiqui catheter is in place and draining well. Sitter now at bedside for safety precautions and PRN Ativan given. Will continue to monitor.
[2019-03-02] MEDS: atorvastatin 20mg tablet PO SCH (20:03)
[2019-03-02] MEDS ORDERED: ziprasidone IM 20mg inj **IM only IM ONE (20:55)
--- NOTE | 2019-03-02 20:55 | NUR ---
Patient continues to be very agitated after one PRN dose of Ativan IVP. He is progressively getting much worse, trying to climb out of bed and pull at lines. Patient placed in bilateral soft wrist restraints at this time. Rainer Menendez notified and gave order for Geodon IM 10MG x1 dose and increased the Ativan to 2mg Q2H for severe anxiety/agitation.
[2019-03-02] MEDS: insulin glargine (Lantus) pen - multi-dose SQ SCH (21:00)
--- NOTE | 2019-03-02 21:55 | NUR ---
Post IM Geodon and another dose of 2mg IVP Ativan patient has not improved at all as far as restlessness and agitation. YULIET spoked with John Menendez again and now has ordered the severe withdrawl protocol for Ativan which is to give up to 2mg IVP Q15min.
[2019-03-02] MEDS: LORazepam 2 mg/ml vial IV PRN ×3 (22:00→23:36)
[2019-03-03] VITALS (25 sets, daily range): BP systolic 114–192; BP diastolic 72–120
[2019-03-03] MEDS: cefepime 1GM in D5W 50mL 50 ML IV SCH ×3 (00:10→15:07)
[2019-03-03] MEDS: nitroGLYCERIN-Tridil 50MG/D5W 250 ML IV PRN ×4 (00:59→22:46)
[2019-03-03] MEDS: LORazepam 2 mg/ml vial IV PRN ×6 (01:01→10:22)
[2019-03-03] MEDS ORDERED: ziprasidone IM 20mg inj **IM only IM ONE ×2 (01:25→10:45)
--- NOTE | 2019-03-03 01:29 | NUR ---
Patient still not improving after several doses of IVP Ativan. He is still very restless and agitated. YULIET spoke with Rainer Menendez again and obtained order for one for dose of IM Geodon 10MG.
[2019-03-03] MEDS: dexamethasone 4mg/ml inj IV SCH ×2 (01:42→07:49)
[2019-03-03] MEDS: ipratropium/albuterol 3ml nebule NEB SCH ×2 (02:48→07:13)
[2019-03-03 02:57] LABS: BASOPHILS % (AUTO) 0 % (0-1); EOSINOPHILS % (AUTO) 0 % (0-6); HEMATOCRIT 25.7 % (42.0-52.0); HEMOGLOBIN 8.4 g/dl (14.0-17.9); LYMPHOCYTES # (AUTO) 0.5 X10'3 (1.1-4.8); MEAN CORPUSCULAR HEMOGLOBIN 26.2 PG (27.0-31.0); MEAN CORPUSCULAR HGB CONC 32.9 g/dL (33.0-36.5); MEAN CORPUSCULAR VOLUME 79.8 FL (78-98); MEAN PLATELET VOLUME 8.2 FL (7.4-10.4); MONOCYTES % (AUTO) 8.2 % (2-12); NEUTROPHILS # (AUTO) 10.7 X10'3 (1.8-7.7); NEUTROPHILS % (AUTO) 87.8 % (42-75); PLATELET COUNT 277 X10'3 (140-440); RED BLOOD COUNT 3.22 X10'6 (4.70-6.10); WHITE BLOOD COUNT 12.2 X10'3 (4.5-11.0)
[2019-03-03 03:07] LABS: ALANINE AMINOTRANSFERASE 20 U/L (12-78); ALBUMIN 2.9 G/DL (3.4-5.0); ALBUMIN/GLOBULIN RATIO 0.8 (1.1-1.5); ALKALINE PHOSPHATASE 88 IU/L (46-116); ANION GAP 12 (8-16); ASPARTATE AMINO TRANSFERASE 28 U/L (10-37); BILIRUBIN,TOTAL 0.3 MG/DL (0.1-1.0); BLOOD UREA NITROGEN 28 MG/DL (7-18); BUN/CREATININE RATIO 26.7 (5.4-32.0); CALCIUM 8.5 MG/DL (8.5-10.1); CHLORIDE 111 MMOL/L (99-107); CREATININE 1.05 MG/DL (0.60-1.10); GLUCOSE 138 MG/DL (70-104); MAGNESIUM 2.1 MG/DL (1.5-2.4); PHOSPHORUS 2.8 MG/DL (2.3-4.5); POTASSIUM 3.4 MMOL/L (3.5-5.1); SODIUM 146 MMOL/L (135-145); TOTAL CARBON DIOXIDE 23.4 MMOL/L (24-32); TOTAL PROTEIN 6.4 G/DL (6.4-8.2); eGFR 85 ML/MIN
[2019-03-03] MEDS: potassium Cl 20mEq/100mL bag 100 ML IV PRN ×2 (03:20→04:17)
[2019-03-03 04:09] LABS: ANISOCYTOSIS 2+; MICROCYTOSIS 1+; PLATELET ESTIMATE NORMAL
--- NOTE | 2019-03-03 04:36 | NUR ---
Patient has now fallen asleep and appears comfortable.
--- NOTE | 2019-03-03 05:40 | NUR ---
Patient now awake and restless again. Another dose of IVP Ativan 2mg given. Sitter still at bedside and soft wrist restrains in place along with bilateral arm and leg immobilizers.
--- NOTE | 2019-03-03 06:37 | NUR ---
Problems reprioritized. Patient report given, questions answered & plan of care reviewed with Anjali LO and Sophie LO.
[2019-03-03] MEDS: famotidine/PF 10 mg/ml inj IV SCH ×2 (07:49→20:57)
[2019-03-03] MEDS: LIDOcaine 5% patch TP SCH ×2 (07:50→19:54)
[2019-03-03] MEDS: insulin Lispro (HumaLOG) vial - multi-dose SQ SCH ×2 (07:51→13:42)
[2019-03-03] MEDS: duloxetine 30mg CAPSULE.DR PO SCH (08:00)
[2019-03-03] MEDS ORDERED: LIDOcaine 5% patch TP SCH (08:00)
[2019-03-03] MEDS: lactobacillus rhamnosus 10,000 MMU CELLS/CAPSULE PO SCH ×2 (08:00→20:00)
[2019-03-03] MEDS: carVEDilol 3.125mg tablet PO SCH ×2 (08:00→20:00)
[2019-03-03] MEDS: K, MAG and/or Phos replacement - Verify level? MC SCH (08:00)
[2019-03-03] MEDS: aspirin 325mg tablet PO SCH (08:30)
[2019-03-03] MEDS: MVI, adult No.4 with vit. K 10 ML in normal saline 500ml IV soln 500 ML IV SCH ×2 (12:06)
[2019-03-03] MEDS: DEXTROSE 5% IV SCH (12:07)
[2019-03-03] MEDS: FOLIC ACID IV SCH (12:07)
[2019-03-03] MEDS: THIAMINE IV SCH (12:07)
[2019-03-03] MEDS: WATER IV SCH (12:07)
--- NOTE | 2019-03-03 12:44 | NUR ---
Reassessment: Patient was extubated, observed extremely restless and altered. Per nursing assessment pt is confused, agitated, does not speak. Bedside RN reports will have BSS prior to feeding however for now patient likely not able to swallow in current confused state. Per Cleaning Handyman at rounds when patient is calmer nursing to place corpak for meds and nutrition. History of possible EtOH and meth as discussed at rounds, patient will be provided with banana bag. Patient is intubated, presents with respiratory failure, angioedema, acute pulmonary edema, receiving lasix. Will continue to follow. Recommend: 1. When corpak is placed and confirmed recommend Jevity 1.2 at 75 ml/hr to provide total volume of 1800 ml, 2160 jeannette, 100 gm protein, and 1453 ml water. 2. additional water per MD in view of pulmonary edema 3. Prealbumin q Saturday and 4. daily weights 5. BSS prior to any diet advancement Addendum: 03/03/19 at [address] Muñoz RD Amended: Links added.
[2019-03-03] MEDS: HYDROmorphone 1 mg/ml syringe IV PRN ×4 (14:22→21:01)
[2019-03-03] MEDS ORDERED: ipratropium/albuterol 3ml nebule NEB PRN (15:00)
[2019-03-03] MEDS: hyDRALAzine 10mg tablet PO SCH (16:00)
[2019-03-03] MEDS: dexmedetomidin/NS 400mcg/100ml 100 ML IV SCH ×2 (18:50→22:35)
[2019-03-03] MEDS: atorvastatin 20mg tablet PO SCH (21:00)
[2019-03-03] MEDS: insulin glargine (Lantus) pen - multi-dose SQ SCH (21:00)
--- NOTE | 2019-03-03 23:33 | NUR ---
Patient bath and bed linnen change completed. Patient awake and cursing RN for repositioning patient to complete bath and bed change. following repositiioning patient on left side patient has gone back to sleep.
[2019-03-04] VITALS (23 sets, daily range): BP systolic 115–166; BP diastolic 65–103
[2019-03-04] MEDS: cefepime 1GM in D5W 50mL 50 ML IV SCH ×3 (00:07→15:54)
[2019-03-04] MEDS: HYDROmorphone 1 mg/ml syringe IV PRN (04:03)
[2019-03-04] MEDS: dexmedetomidin/NS 400mcg/100ml 100 ML IV SCH ×4 (04:23→23:09)
[2019-03-04 04:43] LABS: BASOPHILS % (AUTO) 0.2 % (0-1); EOSINOPHILS % (AUTO) 0 % (0-6); HEMATOCRIT 27.1 % (42.0-52.0); HEMOGLOBIN 8.9 g/dl (14.0-17.9); LYMPHOCYTES # (AUTO) 1.5 X10'3 (1.1-4.8); MEAN CORPUSCULAR HGB CONC 32.8 g/dL (33.0-36.5); MEAN CORPUSCULAR VOLUME 79.4 FL (78-98); MEAN PLATELET VOLUME 8.2 FL (7.4-10.4); MONOCYTES # (AUTO) 0.8 X10'3 (0-0.9); MONOCYTES % (AUTO) 8.6 % (2-12); NEUTROPHILS # (AUTO) 7.5 X10'3 (1.8-7.7); NEUTROPHILS % (AUTO) 76.2 % (42-75); PLATELET COUNT 263 X10'3 (140-440); RED BLOOD COUNT 3.41 X10'6 (4.70-6.10); RED CELL DISTRIBUTION WIDTH 19.1 % (11.5-14.5); WHITE BLOOD COUNT 9.8 X10'3 (4.5-11.0)
[2019-03-04 05:06] LABS: ALANINE AMINOTRANSFERASE 32 U/L (12-78); ALBUMIN 2.8 G/DL (3.4-5.0); ALBUMIN/GLOBULIN RATIO 0.8 (1.1-1.5); ALKALINE PHOSPHATASE 88 IU/L (46-116); ANION GAP 9 (8-16); ASPARTATE AMINO TRANSFERASE 53 U/L (10-37); BILIRUBIN,TOTAL 0.4 MG/DL (0.1-1.0); BLOOD UREA NITROGEN 21 MG/DL (7-18); BUN/CREATININE RATIO 22.1 (5.4-32.0); CALCIUM 8.4 MG/DL (8.5-10.1); CHLORIDE 110 MMOL/L (99-107); CREATININE 0.95 MG/DL (0.60-1.10); GLUCOSE 208 MG/DL (70-104); MAGNESIUM 2.1 MG/DL (1.5-2.4); PHOSPHORUS 3.4 MG/DL (2.3-4.5); POTASSIUM 3.9 MMOL/L (3.5-5.1); SODIUM 143 MMOL/L (135-145); TOTAL CARBON DIOXIDE 24.5 MMOL/L (24-32); TOTAL PROTEIN 6.4 G/DL (6.4-8.2); eGFR > 90 ML/MIN
[2019-03-04] MEDS: nitroGLYCERIN-Tridil 50MG/D5W 250 ML IV PRN ×3 (05:41→20:41)
[2019-03-04 06:19] LABS: MICROCYTOSIS 1+; PLATELET ESTIMATE NORMAL
[2019-03-04 06:20] LABS: ANISOCYTOSIS 2+; POLYCHROMASIA FEW; SCHISTOCYTES FEW
[2019-03-04 06:21] LABS: BURR CELLS FEW
--- NOTE | 2019-03-04 06:35 | NUR ---
Problems reprioritized. Patient report given, questions answered & plan of care reviewed with Anjali LO.
[2019-03-04] MEDS: famotidine/PF 10 mg/ml inj IV SCH ×2 (07:44→21:35)
[2019-03-04] MEDS: dexamethasone 4mg/ml inj IV SCH (07:44)
[2019-03-04] MEDS: LIDOcaine 5% patch TP SCH ×2 (07:54→17:04)
[2019-03-04] MEDS: K, MAG and/or Phos replacement - Verify level? MC SCH (08:00)
[2019-03-04] MEDS: hyDRALAzine 10mg tablet PO SCH ×3 (08:00→15:02)
[2019-03-04] MEDS: duloxetine 30mg CAPSULE.DR PO SCH (08:00)
[2019-03-04] MEDS: carVEDilol 3.125mg tablet PO SCH ×2 (08:00→20:00)
[2019-03-04] MEDS: lactobacillus rhamnosus 10,000 MMU CELLS/CAPSULE PO SCH ×2 (08:00→21:35)
[2019-03-04] MEDS: insulin Lispro (HumaLOG) vial - multi-dose SQ SCH (08:02)
[2019-03-04] MEDS: aspirin 325mg tablet PO SCH (08:30)
[2019-03-04] MEDS: MVI, adult No.4 with vit. K 10 ML in normal saline 500ml IV soln 500 ML IV SCH ×2 (09:49)
[2019-03-04] MEDS: FOLIC ACID IV SCH (13:00)
[2019-03-04] MEDS: DEXTROSE 5% IV SCH (13:00)
[2019-03-04] MEDS: WATER IV SCH (13:00)
[2019-03-04] MEDS: THIAMINE IV SCH (13:00)
--- NOTE | 2019-03-04 17:00 | NUR ---
Pt able to eat by mouth, passed his swallow study, no need for tube Addendum: 03/04/19 at 1700 by Ramya Garcia RN Amended: Links added.
--- NOTE | 2019-03-04 17:35 | NUR ---
Patient in room CICU 2013. I have received report from Anjali LO and had the opportunity to ask questions and assume patient care.
--- NOTE | 2019-03-04 17:42 | NUR ---
Problems reprioritized. Patient report given to Saul (TERESITA), questions answered & plan of care reviewed with .
[2019-03-04] MEDS: atorvastatin 20mg tablet PO SCH (21:36)
[2019-03-04] MEDS: insulin glargine (Lantus) pen - multi-dose SQ SCH (22:13)
[2019-03-05] VITALS (16 sets, daily range): BP systolic 107–176; BP diastolic 62–104
[2019-03-05] MEDS: cefepime 1GM in D5W 50mL 50 ML IV SCH ×2 (00:34→07:23)
[2019-03-05] MEDS: hyDRALAzine 10mg tablet PO SCH ×4 (00:37→23:50)
[2019-03-05 03:30] LABS: BASOPHILS % (AUTO) 0.3 % (0-1); EOSINOPHILS # (AUTO) 0.1 X10'3 (0-0.9); EOSINOPHILS % (AUTO) 0.6 % (0-6); HEMATOCRIT 26.5 % (42.0-52.0); HEMOGLOBIN 8.7 g/dl (14.0-17.9); LYMPHOCYTES # (AUTO) 1.3 X10'3 (1.1-4.8); LYMPHOCYTES % (AUTO) 15.6 % (21-51); MEAN CORPUSCULAR HEMOGLOBIN 25.9 PG (27.0-31.0); MEAN CORPUSCULAR HGB CONC 32.8 g/dL (33.0-36.5); MEAN CORPUSCULAR VOLUME 78.8 FL (78-98); MEAN PLATELET VOLUME 8.1 FL (7.4-10.4); MONOCYTES # (AUTO) 0.9 X10'3 (0-0.9); MONOCYTES % (AUTO) 10.5 % (2-12); NEUTROPHILS # (AUTO) 5.9 X10'3 (1.8-7.7); PLATELET COUNT 239 X10'3 (140-440); RED BLOOD COUNT 3.36 X10'6 (4.70-6.10); RED CELL DISTRIBUTION WIDTH 19.5 % (11.5-14.5); WHITE BLOOD COUNT 8.1 X10'3 (4.5-11.0)
[2019-03-05 03:35] LABS: ALANINE AMINOTRANSFERASE 34 U/L (12-78); ALBUMIN 2.3 G/DL (3.4-5.0); ALBUMIN/GLOBULIN RATIO 0.7 (1.1-1.5); ALKALINE PHOSPHATASE 84 IU/L (46-116); ANION GAP 6 (8-16); ASPARTATE AMINO TRANSFERASE 29 U/L (10-37); BILIRUBIN,TOTAL 0.3 MG/DL (0.1-1.0); BLOOD UREA NITROGEN 21 MG/DL (7-18); BUN/CREATININE RATIO 22.1 (5.4-32.0); CALCIUM 7.8 MG/DL (8.5-10.1); CHLORIDE 109 MMOL/L (99-107); CREATININE 0.95 MG/DL (0.60-1.10); GLUCOSE 205 MG/DL (70-104); MAGNESIUM 1.9 MG/DL (1.5-2.4); POTASSIUM 3.7 MMOL/L (3.5-5.1); SODIUM 140 MMOL/L (135-145); TOTAL CARBON DIOXIDE 24.9 MMOL/L (24-32); TOTAL PROTEIN 5.7 G/DL (6.4-8.2); eGFR > 90 ML/MIN
[2019-03-05 04:29] LABS: ANISOCYTOSIS 2+; MICROCYTOSIS 2+; PLATELET ESTIMATE NORMAL
[2019-03-05 04:30] LABS: HYPOCHROMASIA 1+; SCHISTOCYTES FEW
[2019-03-05] MEDS: nitroGLYCERIN-Tridil 50MG/D5W 250 ML IV PRN (05:36)
--- NOTE | 2019-03-05 06:21 | NUR ---
Patient in room CICU 2013. I have received report from Saul LO and had the opportunity to ask questions and assume patient care.
[2019-03-05] MEDS: famotidine/PF 10 mg/ml inj IV SCH (07:20)
[2019-03-05] MEDS: dexamethasone 4mg/ml inj IV SCH (07:21)
[2019-03-05] MEDS: lactobacillus rhamnosus 10,000 MMU CELLS/CAPSULE PO SCH ×2 (07:24→20:21)
[2019-03-05] MEDS: carVEDilol 3.125mg tablet PO SCH ×2 (07:24→20:21)
[2019-03-05] MEDS: duloxetine 30mg CAPSULE.DR PO SCH (07:24)
[2019-03-05] MEDS: LIDOcaine 5% patch TP SCH (07:26)
[2019-03-05] MEDS: aspirin 325mg tablet PO SCH (07:28)
[2019-03-05] MEDS: K, MAG and/or Phos replacement - Verify level? MC SCH (07:34)
[2019-03-05] MEDS: MESSAGE TO NURSING PO SCH (07:34)
[2019-03-05] MEDS: HYDROmorphone 1 mg/ml syringe IV PRN (07:44)
[2019-03-05] MEDS: folic acid 1mg tablet PO SCH (07:59)
[2019-03-05] MEDS: thiamine 100mg tablet PO SCH (07:59)
[2019-03-05] MEDS: dexmedetomidin/NS 400mcg/100ml 100 ML IV SCH (08:12)
[2019-03-05] MEDS: insulin Lispro (HumaLOG) vial - multi-dose SQ SCH ×2 (08:20→20:19)
[2019-03-05] MEDS: nicotine 21mg patch - 24 hr TD SCH (08:43)
[2019-03-05] MEDS: isosorbide mononitrate 30mg tab.SR.24H PO SCH (08:43)
[2019-03-05] MEDS: MVI, adult No.4 with vit. K 10 ML in normal saline 500ml IV soln 500 ML IV SCH ×2 (09:49)
--- NOTE | 2019-03-05 10:48 | NUR ---
Patient is alert and oriented x4, sitter no longer needed. Central line d/c'd no abnormal bleeding noted at site. Tucker catheter d/c'd, patient tolerated well.
[2019-03-05] MEDS ORDERED: levoFLOXACIN 500mg tablet PO ONE (11:15)
[2019-03-05] MEDS ORDERED: nitroGLYCERIN 0.4mg SUBLingual tab SL PRN (11:30)
[2019-03-05] MEDS ORDERED: aminophylline 250mg/10ml inj. IV PRN (11:30)
[2019-03-05] MEDS ORDERED: regadenoson 0.4mg/5ml syringe IV PRN (11:30)
[2019-03-05] MEDS ORDERED: metoprolol tartrate 1mg/ml inj IV PRN (11:30)
--- NOTE | 2019-03-05 11:52 | NUR ---
reassessment: Pt advanced to mechanical soft/thin liquids per SP. PO 25% avg first 3 meals; ensure high protein TIDWM added to meals pending MD verification. LBM 03/01. Would benefit from routine bowel care since now PO. Not appropriate for DM ed at this time. Will continue to monitor. Recommend: 1. continue mechanical soft/thin liquids per SP recs 2. IF PO improves consider carb controlled restriction given T2DM hx A1C 7.3 3. Ensure high protein TIDWM; pending MD verification prior to sending on trays 4. routine bowel care 5. wt per rx Addendum: 03/05/19 at [address] Amended: Links added.
--- NOTE | 2019-03-05 12:47 | NUR ---
Pt blood sugar 54, one glucoboost given, recheck done at 15 min sebastian, blood sugar up to 90
[2019-03-05] MEDS: lactose-reduced food (Ensure High Protein) 237ml bottle PO SCH ×2 (13:00→18:00)
--- NOTE | 2019-03-05 13:34 | NUR ---
Problems reprioritized. Patient report given, questions answered & plan of care reviewed with Blanca LO, patient will be transferred to [facility] on Medical.
--- NOTE | 2019-03-05 14:00 | NUR ---
Patient in room MED 309. I have received report from RESOURCE PROGRAM TEACHER and had the opportunity to ask questions and assume patient care.
--- NOTE | 2019-03-05 14:10 | NUR ---
Pt arrived to room 309 oriented to room and call light. Lunch arrived for him. Encouraging to eat. he states he is not hungry. VS are stable. O2 sats 97 % on room air. Sitting up in chair. Call light in reach. He denies any pain. He denies other needs at this time. Full assessment to be completed.
--- NOTE | 2019-03-05 18:15 | NUR ---
received report from TERESITA Rios
[2019-03-05] MEDS: atorvastatin 20mg tablet PO SCH (20:21)
[2019-03-05] MEDS: insulin glargine (Lantus) pen - multi-dose SQ SCH (23:14)
[2019-03-06] VITALS (24 sets, daily range): BP systolic 134–175; BP diastolic 74–123
[2019-03-06 05:27] LABS: BASOPHILS % (AUTO) 0.1 % (0-1); EOSINOPHILS % (AUTO) 0.5 % (0-6); HEMATOCRIT 33.2 % (42.0-52.0); LYMPHOCYTES # (AUTO) 1.6 X10'3 (1.1-4.8); MEAN CORPUSCULAR HEMOGLOBIN 25.8 PG (27.0-31.0); MEAN CORPUSCULAR HGB CONC 33.2 g/dL (33.0-36.5); MEAN CORPUSCULAR VOLUME 77.6 FL (78-98); MEAN PLATELET VOLUME 8.2 FL (7.4-10.4); MONOCYTES # (AUTO) 1.1 X10'3 (0-0.9); MONOCYTES % (AUTO) 11.5 % (2-12); NEUTROPHILS # (AUTO) 6.5 X10'3 (1.8-7.7); NEUTROPHILS % (AUTO) 70.9 % (42-75); PLATELET COUNT 272 X10'3 (140-440); RED BLOOD COUNT 4.28 X10'6 (4.70-6.10); RED CELL DISTRIBUTION WIDTH 19.9 % (11.5-14.5); WHITE BLOOD COUNT 9.2 X10'3 (4.5-11.0)
[2019-03-06 05:52] LABS: ALANINE AMINOTRANSFERASE 54 U/L (12-78); ALBUMIN 2.7 G/DL (3.4-5.0); ALBUMIN/GLOBULIN RATIO 0.7 (1.1-1.5); ALKALINE PHOSPHATASE 101 IU/L (46-116); ANION GAP 11 (8-16); ASPARTATE AMINO TRANSFERASE 42 U/L (10-37); BILIRUBIN,TOTAL 0.5 MG/DL (0.1-1.0); BLOOD UREA NITROGEN 15 MG/DL (7-18); BUN/CREATININE RATIO 17.6 (5.4-32.0); CALCIUM 8.7 MG/DL (8.5-10.1); CHLORIDE 105 MMOL/L (99-107); CREATININE 0.85 MG/DL (0.60-1.10); GLUCOSE 103 MG/DL (70-104); MAGNESIUM 1.6 MG/DL (1.5-2.4); PHOSPHORUS 3.3 MG/DL (2.3-4.5); POTASSIUM 3.1 MMOL/L (3.5-5.1); SODIUM 144 MMOL/L (135-145); TOTAL CARBON DIOXIDE 28.3 MMOL/L (24-32); TOTAL PROTEIN 6.6 G/DL (6.4-8.2); eGFR > 90 ML/MIN
--- NOTE | 2019-03-06 06:10 | NUR ---
Patient in room MED 309. I have received report from TERESITA Shrestha and had the opportunity to ask questions and assume patient care.
--- NOTE | 2019-03-06 06:20 | NUR ---
gave report to TERESITA Gonzales
[2019-03-06 06:31] LABS: ANISOCYTOSIS 2+; MICROCYTOSIS 1+; PLATELET ESTIMATE NORMAL; POIKILOCYTOSIS FEW; POLYCHROMASIA FEW
[2019-03-06] MEDS: ondansetron/PF 4mg/2ml inj IV PRN ×2 (07:57→13:23)
[2019-03-06] MEDS: duloxetine 30mg CAPSULE.DR PO SCH (08:00)
[2019-03-06] MEDS: hyDRALAzine 10mg tablet PO SCH ×3 (08:00→23:47)
[2019-03-06] MEDS: lactobacillus rhamnosus 10,000 MMU CELLS/CAPSULE PO SCH ×2 (08:00→21:46)
[2019-03-06] MEDS: carVEDilol 3.125mg tablet PO SCH ×2 (08:00→21:45)
[2019-03-06] MEDS: thiamine 100mg tablet PO SCH (08:00)
[2019-03-06] MEDS: isosorbide mononitrate 30mg tab.SR.24H PO SCH (08:00)
[2019-03-06] MEDS: K, MAG and/or Phos replacement - Verify level? MC SCH (08:00)
[2019-03-06] MEDS: folic acid 1mg tablet PO SCH (08:00)
[2019-03-06] MEDS: clopidogrel 75mg tablet PO SCH (08:00)
--- NOTE | 2019-03-06 08:00 | NUR ---
pt vomited twice ,for total of 500cc,initially refused zofran and all am meds,accepted zofran after 2nd emesis,with good relief of nausea,cont to refuse am meds,sent for anaid scan
[2019-03-06] MEDS: aspirin 325mg tablet PO SCH (08:30)
[2019-03-06] MEDS: levoFLOXACIN 500mg tablet PO SCH (11:00)
[2019-03-06] MEDS: LIDOcaine 5% patch TP SCH (12:50)
[2019-03-06] MEDS: nicotine 21mg patch - 24 hr TD SCH (12:51)
[2019-03-06] MEDS ORDERED: furosemide 40mg/4ml inj ONE (13:19)
[2019-03-06] MEDS: nitroGLYCERIN-Tridil 50MG/D5W 250 ML IV PRN (15:42)
[2019-03-06] MEDS: HYDROmorphone 1 mg/ml syringe IV PRN ×3 (15:44→21:47)
[2019-03-06 17:13] LABS: AMYLASE 78 U/L (25-115); LIPASE 197 U/L (73-393)
[2019-03-06] MEDS: lactose-reduced food (Ensure High Protein) 237ml bottle PO SCH (18:00)
[2019-03-06] MEDS: MESSAGE TO NURSING PO SCH (18:00)
--- NOTE | 2019-03-06 18:00 | NUR ---
Patient in room MED 309. I have received report from Janet LO and had the opportunity to ask questions and assume patient care.
[2019-03-06] MEDS: insulin Lispro (HumaLOG) vial - multi-dose SQ SCH (19:40)
[2019-03-06] MEDS: furosemide 40mg/4ml inj IV SCH (21:45)
[2019-03-06] MEDS: potassium Cl 20 mEq SR tablet PO PRN (21:45)
[2019-03-06] MEDS: atorvastatin 20mg tablet PO SCH (21:46)
[2019-03-06] MEDS: insulin glargine (Lantus) pen - multi-dose SQ SCH (21:50)
[2019-03-07] VITALS (17 sets, daily range): BP systolic 130–194; BP diastolic 68–107
[2019-03-07] MEDS: HYDROmorphone 1 mg/ml syringe IV PRN ×3 (00:49→23:55)
--- NOTE | 2019-03-07 01:10 | NUR ---
Spoke with March about pt reporting 10/10 lower abdominal pain that is increasing in severity. She states she will look look over pt records and call back if she has new orders.
--- NOTE | 2019-03-07 01:30 | NUR ---
March arrived on unit and assessed the pt, she found no signs of acute abdomen, and ordered [place] 10/325 mg PO Q4H PRN for his pain. Will continue to monitor patients pain and status.
--- NOTE | 2019-03-07 06:00 | NUR ---
Problems reprioritized. Patient report given, questions answered & plan of care reviewed with Janet LO.
[2019-03-07 06:26] LABS: BASOPHILS % (AUTO) 0.2 % (0-1); EOSINOPHILS % (AUTO) 0.1 % (0-6); HEMATOCRIT 36.5 % (42.0-52.0); HEMOGLOBIN 11.9 g/dl (14.0-17.9); LYMPHOCYTES # (AUTO) 1.3 X10'3 (1.1-4.8); MEAN CORPUSCULAR HEMOGLOBIN 25.6 PG (27.0-31.0); MEAN CORPUSCULAR HGB CONC 32.7 g/dL (33.0-36.5); MEAN CORPUSCULAR VOLUME 78.5 FL (78-98); MEAN PLATELET VOLUME 8.5 FL (7.4-10.4); MONOCYTES # (AUTO) 1.7 X10'3 (0-0.9); MONOCYTES % (AUTO) 11.3 % (2-12); NEUTROPHILS # (AUTO) 11.7 X10'3 (1.8-7.7); NEUTROPHILS % (AUTO) 79.4 % (42-75); PLATELET COUNT 325 X10'3 (140-440); RED BLOOD COUNT 4.65 X10'6 (4.70-6.10); RED CELL DISTRIBUTION WIDTH 20.4 % (11.5-14.5); WHITE BLOOD COUNT 14.7 X10'3 (4.5-11.0)
--- NOTE | 2019-03-07 06:36 | NUR ---
Patient in room MED 309. I have received report from TERESITA Arzate and had the opportunity to ask questions and assume patient care.
[2019-03-07 06:48] LABS: ALANINE AMINOTRANSFERASE 46 U/L (12-78); ALBUMIN 2.8 G/DL (3.4-5.0); ALBUMIN/GLOBULIN RATIO 0.7 (1.1-1.5); ALKALINE PHOSPHATASE 112 IU/L (46-116); ANION GAP 9 (8-16); ASPARTATE AMINO TRANSFERASE 21 U/L (10-37); BILIRUBIN,TOTAL 0.4 MG/DL (0.1-1.0); BLOOD UREA NITROGEN 21 MG/DL (7-18); BUN/CREATININE RATIO 21.9 (5.4-32.0); CALCIUM 8.6 MG/DL (8.5-10.1); CHLORIDE 103 MMOL/L (99-107); CREATININE 0.96 MG/DL (0.60-1.10); GLUCOSE 189 MG/DL (70-104); MAGNESIUM 1.7 MG/DL (1.5-2.4); PHOSPHORUS 3.6 MG/DL (2.3-4.5); POTASSIUM 3.3 MMOL/L (3.5-5.1); SODIUM 141 MMOL/L (135-145); TOTAL PROTEIN 6.9 G/DL (6.4-8.2); eGFR > 90 ML/MIN
[2019-03-07] MEDS: ondansetron/PF 4mg/2ml inj IV PRN ×2 (07:07→11:03)
[2019-03-07] MEDS: LIDOcaine 5% patch TP SCH ×2 (07:25→07:43)
[2019-03-07] MEDS: nicotine 21mg patch - 24 hr TD SCH (07:26)
[2019-03-07] MEDS: furosemide 40mg/4ml inj IV SCH ×2 (07:26→20:58)
[2019-03-07] MEDS: hyDRALAzine 10mg tablet PO SCH ×3 (07:35→23:54)
[2019-03-07] MEDS: carVEDilol 3.125mg tablet PO SCH ×2 (07:36→20:58)
[2019-03-07] MEDS: isosorbide mononitrate 30mg tab.SR.24H PO SCH (07:36)
[2019-03-07] MEDS: clopidogrel 75mg tablet PO SCH (08:00)
[2019-03-07] MEDS: duloxetine 30mg CAPSULE.DR PO SCH (08:00)
[2019-03-07] MEDS: folic acid 1mg tablet PO SCH (08:00)
[2019-03-07] MEDS: lactobacillus rhamnosus 10,000 MMU CELLS/CAPSULE PO SCH ×2 (08:00→20:58)
[2019-03-07] MEDS: thiamine 100mg tablet PO SCH (08:00)
[2019-03-07] MEDS: aspirin 325mg tablet PO SCH (08:30)
[2019-03-07] MEDS: lactose-reduced food (Ensure High Protein) 237ml bottle PO SCH ×3 (08:57→18:00)
[2019-03-07] MEDS: K, MAG and/or Phos replacement - Verify level? MC SCH (08:57)
[2019-03-07] MEDS: MESSAGE TO NURSING PO SCH (10:00)
[2019-03-07] MEDS: levoFLOXACIN 500mg tablet PO SCH (11:00)
[2019-03-07] MEDS ORDERED: iohexol 300mg/ml 100ml inj. ONE (13:03)
[2019-03-07] MEDS ORDERED: MESSAGE TO NURSING IV ONE (13:50)
[2019-03-07] MEDS: levoFLOXACIN-Levaquin 500mg/D5 100 ML IV SCH (17:18)
--- NOTE | 2019-03-07 18:00 | NUR ---
Patient in room MED 309. I have received report from Janet LO and had the opportunity to ask questions and assume patient care.
[2019-03-07] MEDS: HYDROcodone/acetaminophen 10/325mg tab PO PRN (20:08)
[2019-03-07] MEDS: potassium Cl 20 mEq SR tablet PO PRN (20:59)
[2019-03-07] MEDS: insulin glargine (Lantus) pen - multi-dose SQ SCH (21:48)
[2019-03-07] MEDS: atorvastatin 20mg tablet PO SCH (21:49)
[2019-03-08] VITALS (12 sets, daily range): BP systolic 116–143; BP diastolic 52–89
--- NOTE | 2019-03-08 00:05 | NUR ---
PATIENT NAUSEATED, DOES NOT WANT TO TAKE APRESOLINE AT THIS TIME.
[2019-03-08 05:51] LABS: BASOPHILS % (AUTO) 0.1 % (0-1); EOSINOPHILS # (AUTO) 0.1 X10'3 (0-0.9); EOSINOPHILS % (AUTO) 0.6 % (0-6); HEMATOCRIT 35.2 % (42.0-52.0); HEMOGLOBIN 11.5 g/dl (14.0-17.9); LYMPHOCYTES # (AUTO) 1.8 X10'3 (1.1-4.8); LYMPHOCYTES % (AUTO) 11.8 % (21-51); MEAN CORPUSCULAR HEMOGLOBIN 25.8 PG (27.0-31.0); MEAN CORPUSCULAR HGB CONC 32.5 g/dL (33.0-36.5); MEAN CORPUSCULAR VOLUME 79.3 FL (78-98); MEAN PLATELET VOLUME 8.6 FL (7.4-10.4); MONOCYTES # (AUTO) 1.5 X10'3 (0-0.9); MONOCYTES % (AUTO) 9.9 % (2-12); NEUTROPHILS # (AUTO) 11.8 X10'3 (1.8-7.7); NEUTROPHILS % (AUTO) 77.6 % (42-75); PLATELET COUNT 298 X10'3 (140-440); RED BLOOD COUNT 4.44 X10'6 (4.70-6.10); RED CELL DISTRIBUTION WIDTH 20.6 % (11.5-14.5); WHITE BLOOD COUNT 15.2 X10'3 (4.5-11.0)
[2019-03-08 06:19] LABS: ALANINE AMINOTRANSFERASE 36 U/L (12-78); ALBUMIN 2.6 G/DL (3.4-5.0); ALBUMIN/GLOBULIN RATIO 0.7 (1.1-1.5); ALKALINE PHOSPHATASE 98 IU/L (46-116); ANION GAP 6 (8-16); ASPARTATE AMINO TRANSFERASE 15 U/L (10-37); BILIRUBIN,TOTAL 0.3 MG/DL (0.1-1.0); BLOOD UREA NITROGEN 20 MG/DL (7-18); BUN/CREATININE RATIO 18.9 (5.4-32.0); CALCIUM 8.5 MG/DL (8.5-10.1); CHLORIDE 105 MMOL/L (99-107); CREATININE 1.06 MG/DL (0.60-1.10); GLUCOSE 181 MG/DL (70-104); MAGNESIUM 1.7 MG/DL (1.5-2.4); PHOSPHORUS 3.3 MG/DL (2.3-4.5); POTASSIUM 3.6 MMOL/L (3.5-5.1); SODIUM 140 MMOL/L (135-145); TOTAL CARBON DIOXIDE 29.2 MMOL/L (24-32); TOTAL PROTEIN 6.3 G/DL (6.4-8.2); TRIGLYCERIDES 91 MG/DL (20-135); eGFR 84 ML/MIN
[2019-03-08 07:13] LABS: PLATELET ESTIMATE NORMAL
[2019-03-08 07:14] LABS: ANISOCYTOSIS 3+; ELLIPTOCYTES 1+; HYPOCHROMASIA 1+; MICROCYTOSIS 1+; POLYCHROMASIA 1+
--- NOTE | 2019-03-08 07:16 | NUR ---
Problems reprioritized. Patient report given, questions answered & plan of care reviewed with Pat RN.
[2019-03-08] MEDS: K, MAG and/or Phos replacement - Verify level? MC SCH (08:00)
[2019-03-08] MEDS: lactose-reduced food (Ensure High Protein) 237ml bottle PO SCH ×3 (08:00→18:00)
[2019-03-08] MEDS: LIDOcaine 5% patch TP SCH (08:00)
[2019-03-08] MEDS: nicotine 21mg patch - 24 hr TD SCH (08:00)
[2019-03-08] MEDS: nitroGLYCERIN-Tridil 50MG/D5W 250 ML IV PRN (09:28)
[2019-03-08] MEDS: furosemide 40mg/4ml inj IV SCH ×2 (09:39→19:14)
[2019-03-08] MEDS: lactobacillus rhamnosus 10,000 MMU CELLS/CAPSULE PO SCH ×2 (09:40→19:14)
[2019-03-08] MEDS: duloxetine 30mg CAPSULE.DR PO SCH (09:40)
[2019-03-08] MEDS: carVEDilol 3.125mg tablet PO SCH ×2 (09:40→19:14)
[2019-03-08] MEDS: hyDRALAzine 10mg tablet PO SCH ×3 (09:40→16:39)
[2019-03-08] MEDS: thiamine 100mg tablet PO SCH (09:41)
[2019-03-08] MEDS: aspirin 325mg tablet PO SCH (09:41)
[2019-03-08] MEDS: folic acid 1mg tablet PO SCH (09:41)
[2019-03-08] MEDS: clopidogrel 75mg tablet PO SCH (09:41)
[2019-03-08] MEDS: isosorbide mononitrate 30mg tab.SR.24H PO SCH (09:41)
[2019-03-08] MEDS: docusate sod 100mg capsule PO SCH (10:00)
[2019-03-08] MEDS: insulin Lispro (HumaLOG) vial - multi-dose SQ SCH ×2 (10:12→19:28)
[2019-03-08] MEDS: levoFLOXACIN-Levaquin 500mg/D5 100 ML IV SCH (10:15)
[2019-03-08] MEDS: levoFLOXACIN 500mg tablet PO SCH (10:34)
--- NOTE | 2019-03-08 12:53 | NUR ---
reassessment: Pt PO remains low 0-25% both meals and ONS. Noted to have persistent abdominal discomfort/nausea/vomiting. S/p CT showing small hiatal hernia w/ reflux esophagitis per MD note. Now AOx4 s/p extubation. Pt seen by RD for written/verbal DM ed w/ RD contact information provided. Pt declined verbal DM review and reports feeling much better today w/ GI symptoms much improved. LBM 03/06. Poor nutrition 7 days now since admit not meeting needs. IF persists will require nutrition support to meet needs. Will monitor for PO hx given GI improvement today per pt. Recommend: 1. continue mechanical soft/thin liquids per SP recs 2. IF PO improves consider carb controlled diet restriction; hx DM 3. Ensure high protein TIDWM 4. routine bowel care 5. wt per rx 6. IF poor PO persists; consider alternative nutrition to meet needs Addendum: 03/08/19 at [address] Amended: Links added.
[2019-03-08] MEDS: MESSAGE TO NURSING PO SCH (18:00)
--- NOTE | 2019-03-08 18:20 | NUR ---
received report from Flory RN
[2019-03-08] MEDS: HYDROmorphone 1 mg/ml syringe IV PRN (19:13)
[2019-03-08 20:20] LABS: CLARITY,URINE CLEAR (Clear); COLOR,URINE YELLOW (Yellow); GLUCOSE, URINE NEGATIVE (Neg); KETONES,URINE NEGATIVE (Neg); LEUKOCYTE ESTERASE ,URINE NEGATIVE (Neg); NITRITES, URINE NEGATIVE (Neg); OCCULT BLOOD,URINE NEGATIVE (Neg); PROTEIN,URINE NEGATIVE (Neg); UROBILINOGEN,URINE 0.2 E.U/dL (0.2-1.0)
[2019-03-08 20:22] LABS: UA COLLECTION TYPE VOIDED
[2019-03-08] MEDS: atorvastatin 20mg tablet PO SCH (21:47)
[2019-03-08] MEDS: insulin glargine (Lantus) pen - multi-dose SQ SCH (21:55)
--- NOTE | 2019-03-08 22:00 | NUR ---
pt received ordered dilaudid PRN earlier for ab pain and pt pain level decreased from 9/10 to 4/10. pt is content at the moment, will continue to monitor.
[2019-03-09] MEDS: hyDRALAzine 10mg tablet PO SCH ×3 (00:02→16:18)
[2019-03-09 02:00] VITALS: BP 140/84
[2019-03-09] MEDS: HYDROmorphone 1 mg/ml syringe IV PRN (02:23)
[2019-03-09 05:27] LABS: BASOPHILS % (AUTO) 0.3 % (0-1); EOSINOPHILS # (AUTO) 0.1 X10'3 (0-0.9); EOSINOPHILS % (AUTO) 0.6 % (0-6); HEMATOCRIT 34.5 % (42.0-52.0); HEMOGLOBIN 11.5 g/dl (14.0-17.9); LYMPHOCYTES % (AUTO) 14.6 % (21-51); MEAN CORPUSCULAR HGB CONC 33.3 g/dL (33.0-36.5); MEAN CORPUSCULAR VOLUME 78.1 FL (78-98); MEAN PLATELET VOLUME 8.5 FL (7.4-10.4); MONOCYTES # (AUTO) 1.2 X10'3 (0-0.9); MONOCYTES % (AUTO) 8.6 % (2-12); NEUTROPHILS # (AUTO) 10.6 X10'3 (1.8-7.7); NEUTROPHILS % (AUTO) 75.9 % (42-75); PLATELET COUNT 296 X10'3 (140-440); RED BLOOD COUNT 4.42 X10'6 (4.70-6.10); RED CELL DISTRIBUTION WIDTH 20.3 % (11.5-14.5)
[2019-03-09 05:55] LABS: ALANINE AMINOTRANSFERASE 30 U/L (12-78); ALBUMIN 2.6 G/DL (3.4-5.0); ALBUMIN/GLOBULIN RATIO 0.7 (1.1-1.5); ALKALINE PHOSPHATASE 96 IU/L (46-116); ANION GAP 11 (8-16); ASPARTATE AMINO TRANSFERASE 14 U/L (10-37); BILIRUBIN,TOTAL 0.3 MG/DL (0.1-1.0); BLOOD UREA NITROGEN 18 MG/DL (7-18); BUN/CREATININE RATIO 18.8 (5.4-32.0); CALCIUM 8.7 MG/DL (8.5-10.1); CHLORIDE 104 MMOL/L (99-107); CREATININE 0.96 MG/DL (0.60-1.10); GLUCOSE 123 MG/DL (70-104); MAGNESIUM 1.7 MG/DL (1.5-2.4); PHOSPHORUS 4.1 MG/DL (2.3-4.5); POTASSIUM 3.1 MMOL/L (3.5-5.1); SODIUM 140 MMOL/L (135-145); TOTAL CARBON DIOXIDE 25.5 MMOL/L (24-32); TOTAL PROTEIN 6.6 G/DL (6.4-8.2); eGFR > 90 ML/MIN
[2019-03-09 06:00] VITALS: BP 126/76
--- NOTE | 2019-03-09 06:15 | NUR ---
gave report to demetrius lewis
--- NOTE | 2019-03-09 06:15 | NUR ---
Patient in room MED 309. I have received report from TERESITA Shrestha and had the opportunity to ask questions and assume patient care.
[2019-03-09] MEDS: LIDOcaine 5% patch TP SCH (08:00)
[2019-03-09] MEDS: K, MAG and/or Phos replacement - Verify level? MC SCH (08:00)
[2019-03-09] MEDS: nicotine 21mg patch - 24 hr TD SCH (08:24)
[2019-03-09] MEDS: carVEDilol 3.125mg tablet PO SCH ×2 (08:24→20:29)
[2019-03-09] MEDS: clopidogrel 75mg tablet PO SCH (08:25)
[2019-03-09] MEDS: docusate sod 100mg capsule PO SCH (08:25)
[2019-03-09] MEDS: isosorbide mononitrate 30mg tab.SR.24H PO SCH (08:25)
[2019-03-09] MEDS: aspirin 325mg tablet PO SCH (08:25)
[2019-03-09] MEDS: folic acid 1mg tablet PO SCH (08:25)
[2019-03-09] MEDS: furosemide 40mg/4ml inj IV SCH ×2 (08:25→20:30)
[2019-03-09] MEDS: thiamine 100mg tablet PO SCH (08:25)
[2019-03-09] MEDS: lactobacillus rhamnosus 10,000 MMU CELLS/CAPSULE PO SCH ×2 (08:26→20:29)
[2019-03-09] MEDS: duloxetine 30mg CAPSULE.DR PO SCH (08:26)
[2019-03-09] MEDS: lactose-reduced food (Ensure High Protein) 237ml bottle PO SCH ×3 (08:27→18:00)
--- NOTE | 2019-03-09 09:12 | NUR ---
With speaking to the patient, no recent drug use reported. Patient lives in a home where he has family support. Catheterization performed on August [address] Harris; right leg with stent placement. Records have been requested and are being faxed to us.
[2019-03-09] MEDS: MESSAGE TO NURSING PO SCH (09:38)
[2019-03-09] MEDS: potassium Cl 20 mEq SR tablet PO PRN ×3 (10:01→20:29)
[2019-03-09] MEDS: insulin Lispro (HumaLOG) vial - multi-dose SQ SCH ×2 (10:36→14:47)
[2019-03-09 11:00] VITALS: BP 112/76
[2019-03-09] MEDS: levoFLOXACIN 500mg tablet PO SCH (11:36)
[2019-03-09 15:00] VITALS: BP 138/80
[2019-03-09 18:00] VITALS: BP 139/86
--- NOTE | 2019-03-09 18:35 | NUR ---
received report from TERESITA Graves
--- NOTE | 2019-03-09 18:39 | NUR ---
Problems reprioritized. Patient report given, questions answered & plan of care reviewed with TERESITA Shrestha.
[2019-03-09 22:00] VITALS: BP 121/82
[2019-03-09] MEDS: atorvastatin 20mg tablet PO SCH (22:04)
[2019-03-09] MEDS: HYDROcodone/acetaminophen 10/325mg tab PO PRN (22:05)
[2019-03-09] MEDS: insulin glargine (Lantus) pen - multi-dose SQ SCH (22:12)
[2019-03-10] MEDS: hyDRALAzine 10mg tablet PO SCH ×3 (00:01→16:30)
[2019-03-10 02:00] VITALS: BP 139/65
[2019-03-10] MEDS: HYDROmorphone 1 mg/ml syringe IV PRN ×2 (02:11→21:15)
[2019-03-10 03:51] LABS: BASOPHILS % (AUTO) 0.1 % (0-1); EOSINOPHILS % (AUTO) 0.3 % (0-6); HEMATOCRIT 35.5 % (42.0-52.0); HEMOGLOBIN 11.7 g/dl (14.0-17.9); LYMPHOCYTES # (AUTO) 1.7 X10'3 (1.1-4.8); MEAN CORPUSCULAR HEMOGLOBIN 25.6 PG (27.0-31.0); MEAN CORPUSCULAR HGB CONC 32.9 g/dL (33.0-36.5); MEAN CORPUSCULAR VOLUME 77.7 FL (78-98); MEAN PLATELET VOLUME 8.5 FL (7.4-10.4); MONOCYTES % (AUTO) 7.9 % (2-12); NEUTROPHILS # (AUTO) 10.4 X10'3 (1.8-7.7); NEUTROPHILS % (AUTO) 78.7 % (42-75); PLATELET COUNT 309 X10'3 (140-440); RED BLOOD COUNT 4.57 X10'6 (4.70-6.10); RED CELL DISTRIBUTION WIDTH 21.4 % (11.5-14.5); WHITE BLOOD COUNT 13.2 X10'3 (4.5-11.0)
[2019-03-10 04:04] LABS: ALANINE AMINOTRANSFERASE 37 U/L (12-78); ALBUMIN 2.6 G/DL (3.4-5.0); ALBUMIN/GLOBULIN RATIO 0.7 (1.1-1.5); ALKALINE PHOSPHATASE 100 IU/L (46-116); ANION GAP 9 (8-16); ASPARTATE AMINO TRANSFERASE 20 U/L (10-37); BILIRUBIN,TOTAL 0.3 MG/DL (0.1-1.0); BLOOD UREA NITROGEN 21 MG/DL (7-18); BUN/CREATININE RATIO 18.9 (5.4-32.0); CALCIUM 8.4 MG/DL (8.5-10.1); CHLORIDE 102 MMOL/L (99-107); CREATININE 1.11 MG/DL (0.60-1.10); GLUCOSE 151 MG/DL (70-104); MAGNESIUM 1.6 MG/DL (1.5-2.4); PHOSPHORUS 3.7 MG/DL (2.3-4.5); POTASSIUM 3.5 MMOL/L (3.5-5.1); SODIUM 138 MMOL/L (135-145); TOTAL CARBON DIOXIDE 26.7 MMOL/L (24-32); TOTAL PROTEIN 6.4 G/DL (6.4-8.2); eGFR 80 ML/MIN
[2019-03-10 04:17] LABS: PLATELET ESTIMATE NORMAL
[2019-03-10 04:18] LABS: ANISOCYTOSIS 3+; MICROCYTOSIS 1+
[2019-03-10 06:00] VITALS: BP 113/61
--- NOTE | 2019-03-10 06:05 | NUR ---
Patient in room MED 309. I have received report from TERESITA Shrestha and had the opportunity to ask questions and assume patient care.
--- NOTE | 2019-03-10 06:15 | NUR ---
gave report to TERESITA Graves
[2019-03-10] MEDS: duloxetine 30mg CAPSULE.DR PO SCH (07:56)
[2019-03-10] MEDS: isosorbide mononitrate 30mg tab.SR.24H PO SCH (07:56)
[2019-03-10] MEDS: aspirin 325mg tablet PO SCH (07:56)
[2019-03-10] MEDS: furosemide 40mg/4ml inj IV SCH ×2 (07:56→21:14)
[2019-03-10] MEDS: lactobacillus rhamnosus 10,000 MMU CELLS/CAPSULE PO SCH ×2 (07:56→21:14)
[2019-03-10] MEDS: folic acid 1mg tablet PO SCH (07:56)
[2019-03-10] MEDS: clopidogrel 75mg tablet PO SCH (07:56)
[2019-03-10] MEDS: carVEDilol 3.125mg tablet PO SCH ×2 (07:56→21:14)
[2019-03-10] MEDS: K, MAG and/or Phos replacement - Verify level? MC SCH (07:57)
[2019-03-10] MEDS: docusate sod 100mg capsule PO SCH (07:57)
[2019-03-10] MEDS: lactose-reduced food (Ensure High Protein) 237ml bottle PO SCH ×3 (07:57→18:00)
[2019-03-10] MEDS: LIDOcaine 5% patch TP SCH (08:00)
[2019-03-10] MEDS: nicotine 21mg patch - 24 hr TD SCH (08:14)
[2019-03-10] MEDS: thiamine 100mg tablet PO SCH (08:14)
[2019-03-10] MEDS: insulin Lispro (HumaLOG) vial - multi-dose SQ SCH ×2 (09:56→14:28)
[2019-03-10] MEDS: MESSAGE TO NURSING PO SCH (10:00)
[2019-03-10 11:00] VITALS: BP 115/84
[2019-03-10] MEDS: levoFLOXACIN 500mg tablet PO SCH (11:03)
--- NOTE | 2019-03-10 12:10 | NUR ---
reassessment: Pt PO remains poor 0-25% not meeting needs. Pt seen by MISAEL and reports liking ensures but requests only chocolate flavor w/ ice cup since likes them cold and sherbet w/ lunch today since throat still sore from initial intubation on admit. Dietary notified of preferences. Pt declined further diet preferences. LBM 03/06 receiving colace but also low PO. Possible d/c today. Will continue to monitor. Recommend: 1. continue mechanical soft/thin liquids per SP recs; encourage PO 2. chocolate Ensure high protein TIDWM 3. honor pt food preferences; see above 4. routine bowel care 5. wt per rx Addendum: 03/10/19 at [address] Amended: Links added.
[2019-03-10 15:00] VITALS: BP 122/84
--- NOTE | 2019-03-10 17:44 | NUR ---
Blood glucose 67. Patient requested to eat dinner, then would be willing to recheck blood sugar. Patient did not want glucose shot. Addendum: 03/10/19 at 1907 by Sahil Hoang RN rechecked BS is 96. patient is alert, oriented x4.
[2019-03-10 18:00] VITALS: BP 147/84
--- NOTE | 2019-03-10 18:20 | NUR ---
Spoke with Dr. Drummond, ordered ECHO for the AM due to a discrepancy between EF % of Lexiscan and last echo. This needs to be done for clarification prior to receiving the life vest.
--- NOTE | 2019-03-10 18:45 | NUR ---
patient refused the sugar coverage for dinner.
--- NOTE | 2019-03-10 18:45 | NUR ---
Patient in room MED 308. I have received report from Ely-TERESITA, and had the opportunity to ask questions and assume patient care.
--- NOTE | 2019-03-10 19:07 | NUR ---
Patient refused Dinner Blood sugar correction.
--- NOTE | 2019-03-10 19:20 | NUR ---
Problems reprioritized. Patient report given, questions answered & plan of care reviewed with TERESITA Baxter.
[2019-03-10] MEDS: atorvastatin 20mg tablet PO SCH (21:14)
[2019-03-10] MEDS: insulin glargine (Lantus) pen - multi-dose SQ SCH (21:26)
[2019-03-10 22:00] VITALS: BP 122/81
[2019-03-11 01:15] VITALS: BP 130/87
[2019-03-11] MEDS: hyDRALAzine 10mg tablet PO SCH ×3 (01:15→16:11)
[2019-03-11 02:00] VITALS: BP 130/87
[2019-03-11] MEDS: HYDROmorphone 1 mg/ml syringe IV PRN ×2 (02:42→10:11)
[2019-03-11 03:18] LABS: BASOPHILS % (AUTO) 0.3 % (0-1); EOSINOPHILS # (AUTO) 0.1 X10'3 (0-0.9); EOSINOPHILS % (AUTO) 0.5 % (0-6); HEMATOCRIT 36.4 % (42.0-52.0); HEMOGLOBIN 11.7 g/dl (14.0-17.9); LYMPHOCYTES # (AUTO) 1.8 X10'3 (1.1-4.8); LYMPHOCYTES % (AUTO) 12.2 % (21-51); MEAN CORPUSCULAR HEMOGLOBIN 25.4 PG (27.0-31.0); MEAN CORPUSCULAR HGB CONC 32.2 g/dL (33.0-36.5); MEAN CORPUSCULAR VOLUME 78.9 FL (78-98); MEAN PLATELET VOLUME 8.6 FL (7.4-10.4); MONOCYTES # (AUTO) 1.1 X10'3 (0-0.9); MONOCYTES % (AUTO) 7.6 % (2-12); NEUTROPHILS # (AUTO) 11.4 X10'3 (1.8-7.7); NEUTROPHILS % (AUTO) 79.4 % (42-75); PLATELET COUNT 310 X10'3 (140-440); RED BLOOD COUNT 4.62 X10'6 (4.70-6.10); RED CELL DISTRIBUTION WIDTH 21.2 % (11.5-14.5); WHITE BLOOD COUNT 14.4 X10'3 (4.5-11.0)
[2019-03-11 03:32] LABS: ALANINE AMINOTRANSFERASE 45 U/L (12-78); ALBUMIN 2.6 G/DL (3.4-5.0); ALBUMIN/GLOBULIN RATIO 0.7 (1.1-1.5); ALKALINE PHOSPHATASE 101 IU/L (46-116); ANION GAP 9 (8-16); ASPARTATE AMINO TRANSFERASE 26 U/L (10-37); BILIRUBIN,TOTAL 0.3 MG/DL (0.1-1.0); BLOOD UREA NITROGEN 24 MG/DL (7-18); BUN/CREATININE RATIO 22.2 (5.4-32.0); CALCIUM 8.4 MG/DL (8.5-10.1); CHLORIDE 101 MMOL/L (99-107); CREATININE 1.08 MG/DL (0.60-1.10); GLUCOSE 160 MG/DL (70-104); MAGNESIUM 1.7 MG/DL (1.5-2.4); PHOSPHORUS 3.8 MG/DL (2.3-4.5); POTASSIUM 3.5 MMOL/L (3.5-5.1); SODIUM 136 MMOL/L (135-145); TOTAL CARBON DIOXIDE 25.6 MMOL/L (24-32); TOTAL PROTEIN 6.6 G/DL (6.4-8.2); eGFR 83 ML/MIN
[2019-03-11 04:01] LABS: ANISOCYTOSIS 3+; MICROCYTOSIS 1+; PLATELET ESTIMATE NORMAL; SCHISTOCYTES FEW
--- NOTE | 2019-03-11 06:34 | NUR ---
Problems reprioritized. Patient report given to Pat-Rn, questions answered & plan of care reviewed with .
[2019-03-11 06:54] VITALS: BP 125/79
[2019-03-11] MEDS: LIDOcaine 5% patch TP SCH (08:00)
[2019-03-11] MEDS: clopidogrel 75mg tablet PO SCH (08:12)
[2019-03-11] MEDS: thiamine 100mg tablet PO SCH (08:12)
[2019-03-11] MEDS: isosorbide mononitrate 30mg tab.SR.24H PO SCH (08:12)
[2019-03-11] MEDS: duloxetine 30mg CAPSULE.DR PO SCH (08:13)
[2019-03-11] MEDS: docusate sod 100mg capsule PO SCH (08:13)
[2019-03-11] MEDS: aspirin 325mg tablet PO SCH (08:13)
[2019-03-11] MEDS: lactobacillus rhamnosus 10,000 MMU CELLS/CAPSULE PO SCH (08:13)
[2019-03-11] MEDS: carVEDilol 3.125mg tablet PO SCH (08:13)
[2019-03-11] MEDS: folic acid 1mg tablet PO SCH (08:14)
[2019-03-11] MEDS: furosemide 40mg/4ml inj IV SCH (08:14)
[2019-03-11] MEDS: nicotine 21mg patch - 24 hr TD SCH (08:15)
[2019-03-11] MEDS: lactose-reduced food (Ensure High Protein) 237ml bottle PO SCH ×2 (08:22→13:00)
[2019-03-11] MEDS: K, MAG and/or Phos replacement - Verify level? MC SCH (08:30)
[2019-03-11] MEDS: insulin Lispro (HumaLOG) vial - multi-dose SQ SCH ×2 (08:51→13:52)
[2019-03-11] MEDS: MESSAGE TO NURSING PO SCH (10:00)
[2019-03-11 11:00] VITALS: BP 117/86
[2019-03-11] MEDS ORDERED: ISOS30TA6 PO (14:18)
[2019-03-11] MEDS ORDERED: COR3.125T PO (14:18)
[2019-03-11] MEDS ORDERED: NICO-687 TD (14:18)
[2019-03-11] MEDS ORDERED: NITR0.4T51 SL (14:18)
[2019-03-11 15:00] VITALS: BP 126/60
== END 2019-03-11 16:15 | disposition home or self-care (01) | DRG 208 ==
LOC: ER 01:01 → ED HOLD 02:39 → CICU 2S 04:22 → MED 3N 03-05 14:10
PROVIDERS: ADMIT Internal Medicine Critical Care Medicine
PROC: 5A1945Z Respiratory Ventilation, 24-96 Consecutive Hours (ICD-10-PCS; principal; 2019-02-28)
PROC: 06HY33Z Insertion of Infusion Device into Lower Vein, Percutaneous Approach (ICD-10-PCS; 2019-02-28)
PROC: 0BH17EZ Insertion of Endotracheal Airway into Trachea, Via Natural or Artificial Opening (ICD-10-PCS; 2019-02-28)
PROC: 30233N1 Transfusion of Nonautologous Red Blood Cells into Peripheral Vein, Percutaneous Approach (ICD-10-PCS; 2019-03-01)
PROC: 4A02XM4 Measurement of Cardiac Total Activity, External Approach (ICD-10-PCS; 2019-03-06)
PROC: 3E033HZ Introduction of Radioactive Substance into Peripheral Vein, Percutaneous Approach (ICD-10-PCS; 2019-03-06)
PROC: BW211ZZ Computerized Tomography (CT Scan) of Abdomen and Pelvis using Low Osmolar Contrast (ICD-10-PCS; 2019-03-07)
DX: J96.00 Acute respiratory failure, unspecified whether with hypoxia or hypercapnia (principal); I50.21 Acute systolic (congestive) heart failure; J81.0 Acute pulmonary edema; I47.1 Supraventricular tachycardia; I42.8 Other cardiomyopathies; F19.20 Other psychoactive substance dependence, uncomplicated; T78.3XXA Angioneurotic edema, initial encounter; E78.00 Pure hypercholesterolemia, unspecified; E78.5 Hyperlipidemia, unspecified; F12.90 Cannabis use, unspecified, uncomplicated; F41.9 Anxiety disorder, unspecified; M54.9 Dorsalgia, unspecified; E11.51 Type 2 diabetes mellitus with diabetic peripheral angiopathy without gangrene; F17.210 Nicotine dependence, cigarettes, uncomplicated; Z60.2 Problems related to living alone; G89.29 Other chronic pain; I11.0 Hypertensive heart disease with heart failure; I25.10 Atherosclerotic heart disease of native coronary artery without angina pectoris; Z59.0 Homelessness; Z79.02 Long term (current) use of antithrombotics/antiplatelets; Z79.84 Long term (current) use of oral hypoglycemic drugs; Z79.899 Other long term (current) drug therapy; Z82.3 Family history of stroke; Z86.73 Personal history of transient ischemic attack (TIA), and cerebral infarction without residual deficits; Z88.5 Allergy status to narcotic agent; Z88.0 Allergy status to penicillin; Z88.8 Allergy status to other drugs, medicaments and biological substances; Z79.82 Long term (current) use of aspirin; Z71.6 Tobacco abuse counseling
CPT/HCPCS: 31500; 36415; 36430; 36556; 36600; 71045; 74177; 76700; 78452; 80053; 81003; 82150; 82272; 82803; 82810; 82948; 83036; 83605; 83690; 83735; 83880; 84100; 84132; 84478; 84484; 85018; 85025; 85027; 85610; 85730; 86885; 86900; 86901; 86920; 87040; 87070; 87077; 87081; 87185; 92508; 92616; 93005; 93017; 93306; 93308; 93975; 94002; 94003; 94640; 94760; 96372; 96374; 96375; 99291; 99292; A9500; G0378; J0153; J0171; J0280; J0692; J1100; J1170; J1200; J1644; J1815; J1940; J1956; J2060; J2250; J2405; J2785; J2920; J2930; J3010; J3411; J3480; J3486; J3490; J7040; J7060; P9016; Q9967

== ENCOUNTER 2019-05-29 16:07 | Emergency (ER) | payer MEDICARE, MEDICAID ==
[~2019-05-29] VITALS: Ht 185.4 cm; Wt 90.9 kg
[~2019-05-29 16:07] MED LIST changes: -ASPI-845 PO; +COR3.125T PO; -GLIM4TAB4 PO; +ISOS30TA6 PO; -LISI40TA4 PO; -METO1TAB25 PO; +METO50TA17 PO; +NICO-687 TD; +NITR0.4T51 SL; -OMEP-297 PO; -PARO10TA85 PO
[2019-05-29] MEDS ORDERED: aspirin 81mg tab.chew PO ONE (16:15)
[2019-05-29 16:40] LABS: BASOPHILS % (AUTO) 0.4 % (0-1); EOSINOPHILS # (AUTO) 0.1 X10'3 (0-0.9); EOSINOPHILS % (AUTO) 1.2 % (0-6); HEMATOCRIT 34.6 % (42.0-52.0); HEMOGLOBIN 11.1 g/dl (14.0-17.9); LYMPHOCYTES # (AUTO) 1.5 X10'3 (1.1-4.8); LYMPHOCYTES % (AUTO) 22.4 % (21-51); MEAN CORPUSCULAR HEMOGLOBIN 23.8 PG (27.0-31.0); MEAN CORPUSCULAR VOLUME 74.5 FL (78-98); MEAN PLATELET VOLUME 8.9 FL (7.4-10.4); MONOCYTES # (AUTO) 0.6 X10'3 (0-0.9); MONOCYTES % (AUTO) 9.1 % (2-12); NEUTROPHILS # (AUTO) 4.5 X10'3 (1.8-7.7); NEUTROPHILS % (AUTO) 66.9 % (42-75); PLATELET COUNT 289 X10'3 (140-440); RED BLOOD COUNT 4.64 X10'6 (4.70-6.10); WHITE BLOOD COUNT 6.8 X10'3 (4.5-11.0)
[2019-05-29 16:57] LABS: ALANINE AMINOTRANSFERASE 16 U/L (12-78); ALBUMIN 3.6 G/DL (3.4-5.0); ALBUMIN/GLOBULIN RATIO 0.9 (1.1-1.5); ALKALINE PHOSPHATASE 84 IU/L (46-116); ANION GAP 13 (8-16); ASPARTATE AMINO TRANSFERASE 18 U/L (10-37); BILIRUBIN,TOTAL 0.3 MG/DL (0.1-1.0); BLOOD UREA NITROGEN 15 MG/DL (7-18); BUN/CREATININE RATIO 14.4 (5.4-32.0); CALCIUM 9.9 MG/DL (8.5-10.1); CHLORIDE 105 MMOL/L (99-107); CREATININE 1.04 MG/DL (0.60-1.10); GLUCOSE 147 MG/DL (70-104); POTASSIUM 3.9 MMOL/L (3.5-5.1); SODIUM 139 MMOL/L (135-145); TOTAL CARBON DIOXIDE 21.2 MMOL/L (24-32); TOTAL PROTEIN 7.7 G/DL (6.4-8.2); eGFR 86 ML/MIN
[2019-05-29 17:04] LABS: MAGNESIUM 1.4 MG/DL (1.5-2.4)
[2019-05-29 17:12] LABS: ANISOCYTOSIS 3+; MICROCYTOSIS 1+; PLATELET ESTIMATE NORMAL
[2019-05-29 17:13] LABS: ELLIPTOCYTES FEW; SCHISTOCYTES FEW
[2019-05-29 17:14] LABS: POIKILOCYTOSIS FEW
[2019-05-29 17:15] LABS: HYPOCHROMASIA 1+
[2019-05-29 19:06] VITALS: BP 141/89
== END 2019-05-29 19:12 ==
LOC: ER 16:08
DX: R07.9 Chest pain, unspecified (principal); R06.02 Shortness of breath; R11.10 Vomiting, unspecified; R61 Generalized hyperhidrosis; E78.00 Pure hypercholesterolemia, unspecified; I10 Essential (primary) hypertension; E11.9 Type 2 diabetes mellitus without complications; G89.29 Other chronic pain; F41.9 Anxiety disorder, unspecified; Z86.73 Personal history of transient ischemic attack (TIA), and cerebral infarction without residual deficits; Z98.890 Other specified postprocedural states; Z87.891 Personal history of nicotine dependence; F15.90 Other stimulant use, unspecified, uncomplicated; F12.90 Cannabis use, unspecified, uncomplicated; Z72.89 Other problems related to lifestyle; Z59.0 Homelessness; Z88.6 Allergy status to analgesic agent; Z88.5 Allergy status to narcotic agent; Z88.0 Allergy status to penicillin; Z88.8 Allergy status to other drugs, medicaments and biological substances; Z79.84 Long term (current) use of oral hypoglycemic drugs; Z79.899 Other long term (current) drug therapy
CPT/HCPCS: 36415; 71045; 80053; 83735; 83880; 84484; 85025; 93005; 99285